=== PATIENT | male | born 1930 | race Caucasian/White ===

== ENCOUNTER 2019-01-15 10:40 | Inpatient (IN) ==
--- NOTE | 2019-01-15 10:47 | History & Physical Report ---
Date of Encounter: 01/15/19 Time of Encounter: 10:47 24 Hour HP Update - Instructions Instructions: If the History and Physical is less than 30 days old and was completed prior to A.M. admission and or procedure and has NOT been updated on calendar day of procedure please complete this update prior to performing procedure. - Update Patient reports changes in Medical Condition: No Changes in examination, assessment, or condition: No Changes in Medication: No Preop tests/diagnostics Reviewed: Yes Surgery Remains Indicated: Yes Consent for Planned Operative Procedure(s) Verified: Yes - Pre-Operative Checklist Preoperative Checklist Indicated: No Prophylactic Antibiotic Ordered: Yes Is VTE Prophylaxis Indicated?: Yes
--- NOTE | 2019-01-15 10:51 | Anesthesia Evaluation PreOp ---
Date of Encounter: 01/15/19 Time of Encounter: 10:48 - Past History Planned Operation: Right Robotic Total Hip Arthroplasty Cardiac History: HTN Pulmonary History: SLICK Dx RN RESEARCH History: Denies Any Significant HX Other Medical History: Renal (CRD Stage 3), Other (rectosigmoid cancer, Bladder cancer) Anesthesia History: No Prior Anesthetic Complications, Past Anesthesia ( cancer surgery, cholecystectomy, colectomy, Cervical Spine Fusion. Lumbar spine fusion. Hemorrhoidectomy) Alcohol Use: none Drug use: none Medications and Allergies Atenolol [Tenormin] 25 mg PO QAM 01/15/19 [History] Furosemide [Lasix] 40 mg PO DAILY 01/15/19 [History] Niacin 500 mg PO DAILY 01/15/19 [History] OXcarbazepine [Oxcarbazepine] 300 mg PO BID 01/15/19 [History] Potassium Chloride [Klor-Con 10] 10 meq PO QAM 01/15/19 [History] Rosuvastatin Calcium [Crestor] 10 mg PO HS 01/15/19 [History] Terazosin [Hytrin] 5 mg PO HS 01/15/19 [History] Triamcinolone Acetonide [Triderm] 1 appl TP DAILY PRN 01/15/19 [History] Allergy/AdvReac Type Severity Reaction Status Date / Time No Known Allergies Allergy Verified 01/15/19 11:08 - Meds/Allergy Pre-op Review Medications Reviewed: Yes Allergies Reviewed: Yes Beta Blockers on Current Med List: Yes If Beta Blockers taken, Date/Time (Last Dose taken): 08:30 Today Anesthesia Results - Labs Laboratory Tests 12/23/18 12/23/18 12/23/18 11:49 11:49 11:49 WBC 5.5 Hgb 11.6 L Hct 33.9 L INR 1.1 Sodium 142 Potassium 3.4 L Chloride 106 Carbon Dioxide 30 H BUN 17 Creatinine 1.19 - Imaging EKG: report reviewed (SINUS BRADYCARDIA INTRAVENTRICULAR CONDUCTION DELAY MODERATE VOLTAGE CRITERIA FOR LVH, CONSIDER NORMAL VARIANT Electronically Signed On 11-30-2018 18:14:43 EDT by Brody Navarrete) Additional studies: Echocardiogram Name: Serge Meghan Date of Study: 10/23/2018 EV/EV echocardiogram Impressions: LVEF 60%. Mild left ventricular diastolic dysfunction. Normal right ventricular structure and function. Mild tricuspid regurgitation. No pulmonary hypertension. 10/23/18 Stress Small perfusion defect possibly representing Ischemia EF-53% No perfusion evidence of infarct Name: Serge Christianson Date of Study: 11/29/2018 Date: 1930 Ht: 165.1 cm /65.0 in Medical Record#: [id number] Age: 87 Wt: 77.3 kg / 170.42 lb Account/Order#: [id number] Gender: Male BSA: 1.85 Order #: [id number] Fluoro Dose: 73 mGy 17 mGycm2 BMI: 28.36 Procedure Physician: Jenaro Patton MD, [facility] Referring MD: Nicole Telles CNP Referring MD: Procedures Performed: Transradial LEFT HEART CATH Indications: Abnormal Test - Stress Other- Abnormal Test- Stress Impressions: Mild atherosclerotic coronary artery disease. There is mild segmental LV Dysfunction EF 45% Recommendations: Optimal medical therapy of patient's disease. Aggressive risk factor modification. LV Ventriculography Ejection Method: LV Gram Ejection Fraction: 45% Coronary Dominance: right Lesion Findings/Interventions * Left Main Coronary Artery The LMCA is angiographically free of disease. * Left Anterior Descending There is a 30% stenosis in the Mid LAD. * Circumflex There is a 20% stenosis in the Mid Circumflex. * Right Coronary Artery There is a 15% stenosis in the Proximal RCA. Anesthesia Exam O2 Sat Height 1.65 m Weight 71.668 kg O2 Sat by Pulse Oximetry 96 Vital Signs Temp Pulse Resp BP Pulse Ox 98.4 F 50 18 142/74 96 01/15/19 11:01 01/15/19 11:01 01/15/19 11:01 01/15/19 11:01 01/15/19 11:01 - HEENT Pupil (Motor): Pupils equal, EOMI Mallampati: III Teeth: Missing, Poor dentition Oral Opening: Greater than 3 - RN RESEARCH LOC: Oriented RN RESEARCH Motor: Normal RUE, Normal LUE, Normal RLE, Normal LLE, Normal Face RN RESEARCH Sensory: Normal: RUE, LUE, RLE, LLE, Face - Cardiac Rhythm: Regular Murmur: None JVD: No Carotid Bruit: No - Pulmonary Breath Sounds: bilateral Clear Respiratory Effort: Symmetrical Anesthesia Assess/Plan ASA Score: 3 Level of consciousness: Cooperative Anesthetic Plan: General Reason for No Neuroaxial/Regional Block: Patient refusal, Medication contraindications (multiple lumbar sx) Autologous Blood: Yes Monitoring Plan: Standard Monitors Recovery Plan: PACU
[2019-01-15] MEDS ORDERED: Celecoxib 200 MG CAPSULE PO ONE (11:18)
[2019-01-15] MEDS ORDERED: Gabapentin 300 MG CAPSULE PO ONE (11:18)
[2019-01-15] MEDS ORDERED: *HR* OxyCODONE ER (12 HR) 10 MG TABLET PO ONE (11:20)
[2019-01-15] MEDS ORDERED: Propofol 500 MG/50 ML INFUS..BTL ONE (11:21)
[2019-01-15] MEDS ORDERED: Acetaminophen IV 1,000 MG/100 ML INFUS..BTL IVPB ONE (11:21)
--- NOTE | 2019-01-15 12:09 | Physician Discharge Referral ---
ExtendedCare Referral Info Transfer To: [facility] Provider in Charge: Dr. Valdez - Diagnosis (1) Status post total replacement of right hip Priority: Primary Status: Acute (2) Osteoarthritis of right hip Priority: Primary Status: Chronic (3) Hypertension Priority: Secondary Status: Chronic (4) CAD (coronary artery disease) Priority: Secondary Status: Chronic (5) SLICK (obstructive sleep apnea) Priority: Secondary Status: Chronic (6) Bifascicular block Priority: Secondary Status: Chronic (7) Sinus bradycardia Priority: Secondary Status: Chronic (8) History of bladder cancer Priority: Secondary Status: Chronic (9) History of colon cancer Priority: Secondary Status: Chronic (10) Acute blood loss anemia Status: Acute (11) CKD (chronic kidney disease) stage 3, GFR 30-59 ml/min Priority: Secondary Status: Chronic Expected Duration of Placement: <30 days Prognosis: Good Aware of Diagnosis: Patient Aware of Prognosis: Patient - Transfer Medications Home Medications: Aspirin Enteric Coated [Aspirin EC] 325 mg PO BID 10 Days #20 tablet. 01/15/19 [Rx] Atenolol [Tenormin] 25 mg PO QAM 01/15/19 [History] Docusate Sodium [Colace] 100 mg PO BID 5 Days #10 capsule 01/15/19 [Rx] Furosemide [Lasix] 40 mg PO DAILY 01/15/19 [History] Niacin 500 mg PO DAILY 01/15/19 [History] OXcarbazepine [Oxcarbazepine] 300 mg PO BID 01/15/19 [History] OxyCODONE Immed Rel [Roxicodone 5 MG] 5 mg PO Q6HR PRN 5 Days #20 tablet 01/15/19 [Rx] Potassium Chloride [Klor-Con 10] 10 meq PO QAM 01/15/19 [History] Rosuvastatin Calcium [Crestor] 10 mg PO HS 01/15/19 [History] Terazosin [Hytrin] 5 mg PO HS 01/15/19 [History] Triamcinolone Acetonide [Triderm] 1 appl TP DAILY PRN 01/15/19 [History] Allergies/Adverse Reactions: Allergy/AdvReac Type Severity Reaction Status Date / Time No Known Allergies Allergy Verified 01/15/19 11:08 - Respiratory Orders None Smoking Cessation: Smoking cessation has been advised. For more information, call the [place] Tobacco Quit Line at 9-955-AOPT-NOW. - Ancillary Orders May use pressure relief devices daily prn, May go on NASH w/family/respon constitution party w/meds at nurse discretion PRN, May consult with Dentist, Hr Business Partner, Security Systems Specialist PRN - Advance Directives Code Status: Full Code - Mobility Orders Chair, Ambulate - Rehabiliation Orders Rehab Potential: Good Rehab Orders: ROM Exercises, Evaluation for Physical Therapy, Evaluation for Occupational Therapy Other: Opsite dressing, leave intact until first post-operative visit. If dressing becomes >50% saturated, contact office, remove dressing and place appropriate dressing in its place. Do not allow for dressing to get wet. Zipline/[place] in place, plan to remove at post-operative day #14-16. Total Joint Precautions x 6 weeks Apply cold therapy wrap 3-6x/day for 20 minutes at a time. Encourage ambulation throughout the day Use Incentive spirometer 10x/hour. Elevate affected extremity above heart as tolerated. Brace: Wear hip abductor brace at night x 6 weeks. - Treatments Skin tear care topically daily PRN per policy, Fleet enema rectally every other day PRN cleansing purposes - Diet Orders Regular CERTIFICATION: I certify that the transfer of the above named patient to an Extended Care Facility is necessary for the continuing treatment of the diagnosis listed. The above information is true and accurate reflection of patient's current condition. Confidential - Redisclosure prohibited without a patient's written consent.
[2019-01-15] MEDS ORDERED: CeFAZolin Syr 2,000MG/20 ML 2,000 MG/20 ML SYRINGE IVPB ONE (12:12)
[2019-01-15] MEDS: Ringers Solution, Lactated 1,000 ML IVC SCH ×3 (12:22→16:26)
[2019-01-15] MEDS ORDERED: Ethanol\\Acetic Acid\\Na Ace\\Ben 1,000 ML IRRIG.SOLN IR ONE (12:34)
--- NOTE | 2019-01-15 12:49 | Discharge Summary ---
<Savanah Capellan E - Last Filed: 01/15/19 12:46> Date of Encounter: 01/15/19 - Hospital Course Hospital course: Mr. Christianson is a 88 year old male - Time Spent with Patient Total time spent providing and/or coordinating discharge services: - Discharge Medications Prescriptions: New Aspirin Enteric Coated [Aspirin EC] 325 mg PO BID 10 Days #20 tablet. Docusate Sodium [Colace] 100 mg PO BID 5 Days #10 capsule OxyCODONE Immed Rel [Roxicodone 5 MG] 5 mg PO Q6HR PRN 5 Days #20 tablet PRN Reason: Severe Pain Continued Rosuvastatin Calcium [Crestor] 10 mg PO HS OXcarbazepine [Oxcarbazepine] 300 mg PO BID Potassium Chloride [Klor-Con 10] 10 meq PO QAM Niacin 500 mg PO DAILY Furosemide [Lasix] 40 mg PO DAILY Triamcinolone Acetonide [Triderm] 1 appl TP DAILY PRN PRN Reason: Itching Discontinued Terazosin [Hytrin] 5 mg PO HS Atenolol [Tenormin] 25 mg PO QAM Home Medications: Aspirin Enteric Coated [Aspirin EC] 325 mg PO BID 10 Days #20 tablet. 01/15/19 [Rx] Docusate Sodium [Colace] 100 mg PO BID 5 Days #10 capsule 01/15/19 [Rx] Furosemide [Lasix] 40 mg PO DAILY 01/15/19 [History] Niacin 500 mg PO DAILY 01/15/19 [History] OXcarbazepine [Oxcarbazepine] 300 mg PO BID 01/15/19 [History] OxyCODONE Immed Rel [Roxicodone 5 MG] 5 mg PO Q6HR PRN 5 Days #20 tablet 01/15/19 [Rx] Potassium Chloride [Klor-Con 10] 10 meq PO QAM 01/15/19 [History] Rosuvastatin Calcium [Crestor] 10 mg PO HS 01/15/19 [History] Triamcinolone Acetonide [Triderm] 1 appl TP DAILY PRN 01/15/19 [History] Allergies/Adverse Reactions: Allergy/AdvReac Type Severity Reaction Status Date / Time No Known Allergies Allergy Verified 01/15/19 11:08 Primary care physician: Kindra Rudd - Patient Status Disposition: Transfer SNF Condition: Good - Discharge Instructions Follow Up With: Kindra Rudd CNP [Primary Care Provider] - <Savanah Babin - Last Filed: 01/19/19 17:36> - NOTES TO OUTPATIENT PROVIDER Notes to Outpatient Provider: Will require close PCP/cardiology follow up for blood pressure management. Date of Encounter: 01/19/19 Time of Encounter: 12:10 - Discharge Diagnosis (1) Status post total replacement of right hip Priority: Primary Status: Acute (2) Osteoarthritis of right hip Priority: Primary Status: Chronic Qualifiers: Osteoarthritis type: unspecified Qualified Code(s): M16.11 - Unilateral primary osteoarthritis, right hip (3) Hypertension Priority: Secondary Status: Chronic Qualifiers: Hypertension type: unspecified Qualified Code(s): I10 - Essential (primary) hypertension (4) CAD (coronary artery disease) Priority: Secondary Status: Chronic Qualifiers: Coronary Disease-Associated Artery/Lesion type: unspecified vessel or lesion type [place] vs. transplanted heart: unspecified whether [place] or transplanted heart Associated angina: angina presence unspecified Qualified Code(s): I25.10 - Atherosclerotic heart disease of [place] coronary artery without angina pectoris (5) SLICK (obstructive sleep apnea) Priority: Secondary Status: Chronic (6) Bifascicular block Priority: Secondary Status: Chronic (7) Sinus bradycardia Priority: Secondary Status: Chronic (8) History of bladder cancer Priority: Secondary Status: Chronic (9) History of colon cancer Priority: Secondary Status: Chronic (10) Acute blood loss anemia Priority: Secondary Status: Acute (11) CKD (chronic kidney disease) stage 3, GFR 30-59 ml/min Priority: Secondary Status: Chronic - Hospital Course Hospital course: Mr. Christianson is a 88 year old male status post right THR 01/15/19 with medical history of HTN, CKD3, CAD, bifascicular block, SLICK, and h/o bladder and colon cancer. He developed postoperative anemia causing hypotension and DALIA on CKD. Hospitalist was consulted for further medical management of these. The patient received 3 units RBC transfusion and had improvement in the kidney function, BP and anemia. Hospitalist also made changes to patient's home BP medications as below and will require close follow up with PCP/cardiology for further management outpatient basis. Patient also participated in therapy and progressing well. He is now stable for discharge and will follow up in [facility] office next week for reevaluation. Per hospitalist: - resume home lasix 40 daily at d/c and rec close outpatient Cardio or PCP follow up - hold home atenolol, hytrin, and temazepam at d/c - limit opioids at d/c PCR - POD#4 s/p right THR robotic 01/15/19 Patient seen at bedside, without complaints. A&O x 3 Afebrile, vital signs stable, BP improved after fluids, blood transfusion and medication changes. on tele. he has been weaned off O2 now and doing well at 97%. Dressings c/d/i. no calf tenderness to palpation, good dorsiflexion of foot, sensation intact distally. Labs reviewed. H/H - 8.6/25.8 stable, asymptomatic - 2 units RBC transfusion 01/17, Dr. Valdez ordered another unit today Kidney function much improved after the transfusions. Appreciate hospitalists recommendations for management of hypotension and DALIA on CKD. Pain control: adequate Participating in PT. All questions and concerns addressed. Educated on use of incentive spirometer. Encouraged ambulation and proper hydration. Patient educated on post-operative restrictions and post-operative care. Assessment and plan: Continue with postoperative care Discharge plan: ECF today - Time Spent with Patient Total time spent providing and/or coordinating discharge services: Date of admission: 01/15/19 16:30 Primary care physician: Kindra Rudd Consults: 01/15/19 16:29 Consult to Nurse Navigator [CONS] Routine Comment: ortho navigator Consult to Nutrition [CONS] Routine Comment: Consulting Provider: NUTRITION Reason for Dietary Consult: Other Other:: Proper nutrition to facilitate wound healing Consult to Occupational Therapy [CONS] Routine Comment: Evaluate, develop and implement POC Reason for Consult: total hip replacement Does patient have active BEDREST order?: No Is patient medically & hemodynamically stable?: Yes Consult to Physical Therapy [CONS] Routine Comment: Evaluate, develop and implement POC Reason for Consult: total hip replacement Does patient have active BEDREST order?: No Is patient medically & hemodynamically stable?: Yes Consult to Religion Instructor [CONS] Routine Reason for SW Consult: post op joint replacement ECF for therapy RT Post Op Consult [CONS] Routine 01/17/19 12:59 Consult to Hospitalist [CONS] Routine Consulting Provider: Hospitalist Janis Reason for Consult: anemia, kidney dysfunction Time Notified: 13:03 Call Completed: Yes Discharging clinician: Boby Valdez Anticipated date of discharge: 01/19/19 Labs on day of discharge: Labs from last 24 hours 01/18/19 01/18/19 01/18/19 08:08 08:08 07:33 WBC 8.2 RBC 2.44 L Hgb 7.8 L 7.8 L Hct 23.4 L 23.9 L MCV 98.0 MCH 32.0 MCHC 32.6 RDW 16.0 H Plt Count 105 L MPV 10.0 Immature Gran % 1.1 Seg Neutrophils % 71.9 Lymphocytes % 16.8 Monocytes % 8.7 Eosinophils % 1.3 Basophils % 0.2 Neutrophils # 5.9 Lymphocytes # 1.4 Monocytes # 0.7 Eosinophils # 0.1 Basophils # 0.0 Platelet Estimate Slight Decrease L Sodium Potassium Chloride Carbon Dioxide BUN Creatinine Est GFR ( Amer) Est GFR (Non-Af Amer) BUN/Creatinine Ratio Glucose Calculated Osmolality Calcium Specimen Rejected MCV Delta Blood Type Antibody Screen Crossmatch 01/18/19 01/17/19 06:18 12:42 WBC RBC Hgb Hct MCV MCH MCHC RDW Plt Count MPV Immature Gran % Seg Neutrophils % Lymphocytes % Monocytes % Eosinophils % Basophils % Neutrophils # Lymphocytes # Monocytes # Eosinophils # Basophils # Platelet Estimate Sodium 141 Potassium 3.8 Chloride 106 Carbon Dioxide 30 H BUN 23 Creatinine 1.11 Est GFR ( Amer) > 60 Est GFR (Non-Af Amer) > 60 BUN/Creatinine Ratio 21 Glucose 138 H Calculated Osmolality 298 Calcium 8.2 L Specimen Rejected Blood Type B POSITIVE Antibody Screen NEGATIVE Crossmatch See Detail Short CBC 01/19/19 Range/Units 07:00 WBC 8.5 (4.3-11.1) K/mcL Hgb 8.6 L (12.9-16.9) g/dL Hct 25.8 L (37.5-50.1) % Plt Count 131 L (140-400) K/mcL BMP 01/19/19 Range/Units 07:00 Sodium 140 (136-145) mEq/L Potassium 3.5 (3.5-5.1) mEq/L Chloride 105 (98-107) mEq/L Carbon Dioxide 32 H (23-29) mEq/L BUN 23 (8-23) mg/dL Creatinine 0.95 (0.70-1.30) mg/dL Glucose 147 H (70-105) mg/dL Calcium 8.2 L (8.6-10.3) mg/dL - Impressions ITS Impressions Hip X-Ray 01/15/19 15:49 IMPRESSION: No postoperative complications are seen status post right total hip arthroplasty. D/ / Julian Pinzon MD / Julian Pinzon MD Interpreting Provider: Julian Pinzon MD - Patient Status Functional capacity at discharge: uses cane/walker Overall status at discharge: patient is progressing back to baseline - Diet and Activity Activity: ambulate only with your walker, as per physical therapy Diet: advance to your usual diet
[2019-01-15] MEDS ORDERED: Lidocaine -MPF 2% 2 ML VIAL ONE (13:29)
[2019-01-15] MEDS ORDERED: EPHEDrine 50 MG/ML VIAL ONE (13:39)
[2019-01-15] MEDS ORDERED: Ondansetron 4 MG/2 ML VIAL ONE (13:59)
[2019-01-15] MEDS ORDERED: Dexamethasone 4 MG/ML VIAL ONE (13:59)
--- NOTE | 2019-01-15 14:29 | Orthopedic Operative Note ---
Date of procedure: 01/15/19 Pre-op diagnosis: Right hip arthritis Post-op diagnosis: same Procedure: Procedure: Right Total Hip Replacment robotic-assisted Estimated blood loss: 200 cc Hardware: Metal and polyethylene replacement. [place] DM Cup: 58 cup Femoral size 6 anteverted Anato stem Head: 12 head with Aidee Procedural Notes: Grade 4 arthritic changes femoral head acetabular socket, procedure performed with robotic assistance. Operative leg 3 mm shorter than nonoperative as measured by preoperative CT scan. Operative procedure: The patient was brought to the operating room and placed on the operating room table. After anesthesia was administered the patient was placed in the lateral decubitus position with the operative leg up. All pressure points were padded appropriately and the head was stabilized in the neutral position. The operative extremity was prepped and draped in the sterile surgical fashion patient received IV antibiotic prior to skin incision. 3 Steinmann pins were placed in the iliac crest 3 cm proximal to the anterior superior iliac spine this was for the robotic-assisted sensor. This was done through a small 2 cm incision. A standard posterior approach is made to the operative hip, the i ncision was made through the skin and subcutaneous tissue hemostasis was obtained with Bovie cautery. Using careful sharp dissection the fascia was identified and incised exposing the external rotators. The greater trochanter was marked, and length was measured at this time utilizing robotic assistance. The external rotators were released off the greater trochanter and tagged with #2 FiberWire suture. The capsule was T'd open and the hip was brought into internal rotation. Patient noted to have grade 4 arthritic changes femoral head. The femoral neck cut was made at the appropriate level roughly 22 mm proximal to the lesser trochanter aced on preoperative templating. An anterior capsulotomy was performed for the anterior retractor. Soft tissues removed from the acetabulum. Patient noted to have grade 4 arthritic changes acetabulum. The acetabulum reference point was confirmed. The acetabulum was then mapped with robotic assistance. Based on the preoperative plan the acetabulum was reamed in one step with a 58 reamer. The 58 acetabulum was impacted with robotic assistance and 40 degrees of abduction and 20 degrees of anteversion. The hip was brought back in to internal rotation and prepared with the box loader followed by the canal finder followed by the reaming process to a size 13 broaching process in 20 degrees anteversion. It was broached up to the appropriate size 6 Trial reduction revealed leg lengths close to normal. The femoral implant was impacted in place in 20 degrees of anteversion. Trial reduction found the hip to be stable with 12 head and Aidee. The trials were removed and the real implants were impacted in place. The hip was reduced, patient had robotic confirmed leg length of 4 mm longer than the contralateral side. The hip had excellent stability with forward flexion to 90 degrees adduction of 30 degrees and internal rotation of 60 degrees. The hip had no shuck. The hip sat with an antibacterial solution. It was irrigated out with 2 L of pulse irrigation. The Steinmann pins were removed. The hip was closed by the PA. The deep tissue was irrigated and closed deep with #1 PDS suture superficially with 0 PDS suture and skin was closed with Dermabond and zip tie. The patient was placed in a sterile dressing and abduction pillow. The patient was transferred to the recovery room in stable condition. Anesthesia: GETA Surgeon: Boby Valdez Was there an surgical supply assistant present: No Estimated blood loss (cc): 200 Condition: stable Disposition: PACU
[2019-01-15 15:42] LABS: Hematocrit 29.7 % (37.5-50.1); Hemoglobin 9.7 g/dL (12.9-16.9)
[2019-01-15] MEDS ORDERED: *HR* HYDROmorphone (PF) 1 MG/ML SYRINGE IVP PRN (15:43)
[2019-01-15] MEDS ORDERED: *HR* OxyCODONE Immed Rel 5 MG TABLET PO PRN ×2 (15:43→16:29)
[2019-01-15] MEDS ORDERED: *HR* Promethazine 25 MG/ML VIAL IVP PRN ×2 (15:43→16:29)
[2019-01-15] MEDS ORDERED: Ondansetron 4 MG/2 ML VIAL IVP ONE (15:43)
--- NOTE | 2019-01-15 16:03 | Anesthesia Evaluation Post Op ---
Date of Encounter: 01/15/19 Time of Encounter: 16:02 - Vital Signs Vital Signs: Vital Signs/O2 Sat, Most Current Temp Pulse Resp BP Pulse Ox 97.9 F 42 16 116/50 98 01/15/19 15:39 01/15/19 15:59 01/15/19 15:59 01/15/19 15:59 01/15/19 15:59 - Lungs Lungs: Clear Ascult./Percussion - Airway Airway: Non-obstructed - Cardiovascular Regular Rate - Mental Status Mental Status: Alert & Oriented, Answers Appropriately - Pain Pain Scale: 0 Pain Scale used: Numeric (1 - 10) - Nausea Vomiting Nausea Vomiting: Not Present - Hydration Hydration: Tolerates oral liquids, Has not voided - Discharge PostOp Status: Transfer Patient to floor
[2019-01-15] MEDS ORDERED: Ondansetron 4 MG/2 ML VIAL IVP PRN (16:29)
[2019-01-15] MEDS ORDERED: Temazepam 15 MG CAPSULE PO PRN (16:29)
[2019-01-15] MEDS ORDERED: MOM Conc 10 ML UD.LIQ PO PRN (16:29)
[2019-01-15] MEDS ORDERED: Sennosides 8.6 MG TABLET PO PRN (16:29)
[2019-01-15] MEDS ORDERED: Naloxone 0.4 MG/ML INJ IVP PRN (16:29)
[2019-01-15] MEDS ORDERED: traMADol 50 MG TABLET PO PRN (16:29)
[2019-01-15] MEDS ORDERED: HYDROcodone BIT/Homatropine 5 MG TABLET PO PRN (16:29)
[2019-01-15] MEDS: Ascorbic Acid 500 MG TABLET PO SCH (17:14)
[2019-01-15] MEDS: *HR* Enoxaparin 30 MG/0.3 ML SYRINGE SQ SCH (17:17)
[2019-01-15] MEDS ORDERED: *HR* Enoxaparin 30 MG/0.3 ML SYRINGE SQ SCH (18:00)
[2019-01-15] MEDS: OXcarbazepine 150 MG TABLET PO SCH (20:25)
[2019-01-16] MEDS: Ringers Solution, Lactated 1,000 ML IVC SCH (04:16)
[2019-01-16 05:43] LABS: Hematocrit 26.4 % (37.5-50.1); Hemoglobin 8.3 g/dL (12.9-16.9); Immature Granulocytes % 0.5 % (0-4); Lymphocytes # 0.5 K/mcL (0.6-4.6); Lymphocytes % 5.2 %; Mean Corpuscular HGB Conc 31.4 g/dL (31.6-35.5); Mean Corpuscular Hemoglobin 32.2 pg (28.0-33.3); Mean Corpuscular Volume 102.3 fL (83.0-100.0); Mean Platelet Volume 10.1 fL (9.4-12.4); Monocytes # 0.7 K/mcL (0.0-1.3); Monocytes % 7.9 %; Neutrophils # 7.6 K/mcL (1.6-8.9); Platelet Count 132 K/mcL (140-400); Red Blood Count 2.58 M/mcL (4.19-5.50); Segmented Neutrophils % 86.4 %; White Blood Count 8.8 K/mcL (4.3-11.1)
[2019-01-16] MEDS: *HR* Enoxaparin 30 MG/0.3 ML SYRINGE SQ SCH ×2 (06:04→16:53)
[2019-01-16 06:07] LABS: BUN/Creatinine Ratio 16 (6-26); Blood Urea Nitrogen 21 mg/dL (8-23); Carbon Dioxide 27 mEq/L (23-29); Chloride 107 mEq/L (98-107); Glucose 177 mg/dL (70-105); Osmolality,Calculated 301 (280-300); Sodium 142 mEq/L (136-145); eGFR For African Americans > 60 (> 60); eGFR For Non-African Americans 52 (> 60)
--- NOTE | 2019-01-16 06:20 | Orthopedics Progress Note ---
Date of Encounter: 01/16/19 Time of Encounter: 06:20 - Assessment and Plan (1) Acute blood loss anemia Current Visit: Yes Status: Acute Subjective Interval history: Patient was seen this morning doing well without complaints. Afebrile vital signs stable. Operative extremity: Neurovascularly intact Dressing clean dry and intact Calves nontender Assessment and plan: Continue with postoperative care Hemoglobin 8.3 Objective Vital signs: Vital Signs Temp Pulse Resp BP Pulse Ox 01/16/19 05:54 56 91/53 01/16/19 04:31 67 121/67 01/16/19 03:22 97.6 F 50 15 93/47 92 01/15/19 23:07 105/60 01/15/19 22:42 97.5 F L 49 98/53 01/15/19 22:37 96.3 F L 52 16 93/43 98 01/15/19 20:36 99 01/15/19 20:15 96.9 F L 44 16 94/56 99 01/15/19 18:30 41 18 108/64 100 01/15/19 17:30 43 18 105/61 95 01/15/19 17:00 46 18 106/58 96 01/15/19 16:48 95 01/15/19 16:30 98 F 43 18 108/64 95 01/15/19 16:19 97.0 F L 42 14 126/54 98 01/15/19 16:09 97.1 F L 51 16 111/71 100 01/15/19 15:59 42 16 116/50 98 01/15/19 15:49 53 12 100/60 94 01/15/19 15:39 97.9 F 46 12 125/53 95 01/15/19 15:29 49 16 139/61 97 01/15/19 15:19 50 12 142/65 99 01/15/19 15:09 97.2 F L 49 12 117/52 96 01/15/19 11:01 98.4 F 50 18 142/74 96 Intake and Output 01/15/19 01/15/19 01/16/19 15:59 23:59 07:59 Intake Total 1000 / 1100 100 / 1100 1000 / 1000 Output Total 200 / 200 450 / 450 Balance 800 / 900 100 / 900 550 / 550 Intake: IV Fluids 1000 / 1100 100 / 1100 1000 / 1000 Lactated Ringers 1,000 ML @ 75 1000 / 1000 1000 / 1000 mls/hr IVC .[id number] [facility] Rx#: [id number] Ancef 2,000 MG In 0.9 % Sodium 100 / 100 Chloride 100 ML @ 200 mls/hr IVPB Q8HR [facility] Rx#:[id number] Output: Estimated Blood Loss 200 / 200 Straight Cath 450 / 450 Other: Weight 71.668 kg 71.5 kg Blood Glucose* 118 Patient Weight 01/16/19 23:59 Weight 71.5 kg - Labs CBC & BMP: 01/16/19 05:18 01/16/19 05:18 Labs: Abnormal lab results RBC 2.58 M/mcL (4.19-5.50) L 01/16/19 05:18 Hgb 8.3 g/dL (12.9-16.9) L 01/16/19 05:18 Hct 26.4 % (37.5-50.1) L 01/16/19 05:18 MCV 102.3 fL (83.0-100.0) H 01/16/19 05:18 MCHC 31.4 g/dL (31.6-35.5) L 01/16/19 05:18 Plt Count 132 K/mcL (140-400) L 01/16/19 05:18 Lymphocytes # 0.5 K/mcL (0.6-4.6) L 01/16/19 05:18 Creatinine 1.31 mg/dL (0.70-1.30) H 01/16/19 05:18 Est GFR (Non-Af Amer) 52 (> 60) L 01/16/19 05:18 Glucose 177 mg/dL (70-105) H 01/16/19 05:18 Calculated Osmolality 301 (280-300) H 01/16/19 05:18 Calcium 8.0 mg/dL (8.6-10.3) L 01/16/19 05:18 - VTE Documentation of Mechanical Device: Venous foot pump, device Consult Discharge Plan - Plan Referrals: Kindra Rudd CNP [Primary Care Provider] -
[2019-01-16] MEDS: Furosemide 40 MG TABLET PO SCH (08:30)
[2019-01-16] MEDS: OXcarbazepine 150 MG TABLET PO SCH ×2 (08:38→19:42)
[2019-01-16] MEDS: Ascorbic Acid 500 MG TABLET PO SCH ×2 (08:40→16:53)
[2019-01-16] MEDS: Niacin (24 HR) 500 MG TAB.ER.24H PO SCH (08:40)
[2019-01-16] MEDS: Multivit/Ca/Min/Fe/FA 1 TAB TABLET PO SCH (08:40)
--- NOTE | 2019-01-16 16:15 | Event Note ---
Date of Encounter: 01/16/19 Time of Encounter: 12:20 PCR - POD#1 s/p right THR robotic 01/15/19 Patient seen at bedside, without complaints. A&O x 3 Afebrile, vital signs stable except for hypotension. Will add fluids slowly due to CKD and cardiac issues. on tele Dressings c/d/i except for small area of bleeding noted to posterior end - will continue to monitor, no calf tenderness to palpation, good dorsiflexion of foot, sensation intact distally. Labs reviewed. H/H - 8.3/26.4 asymptomatic - will continue to monitor Pain control: adequate Participating in PT. All questions and concerns addressed. Educated on use of incentive spirometer. Encouraged ambulation and proper hydration. Patient educated on post-operative restrictions and post-operative care. Assessment and plan: Continue with postoperative care Discharge plan: ECF when medically cleared
[2019-01-17] MEDS: *HR* Enoxaparin 30 MG/0.3 ML SYRINGE SQ SCH (05:35)
[2019-01-17 06:52] LABS: Basophils % 0.1 %; Eosinophils # 0.1 K/mcL (0.0-0.6); Eosinophils % 1.8 %; Hematocrit 19.5 % (37.5-50.1); Immature Granulocytes % 0.6 % (0-4); Lymphocytes # 1.1 K/mcL (0.6-4.6); Mean Corpuscular HGB Conc 32.8 g/dL (31.6-35.5); Mean Corpuscular Volume 100.5 fL (83.0-100.0); Mean Platelet Volume 9.6 fL (9.4-12.4); Monocytes # 0.5 K/mcL (0.0-1.3); Neutrophils # 4.9 K/mcL (1.6-8.9); Red Blood Count 1.94 M/mcL (4.19-5.50); Red Cell Distribution Width 13.3 % (11.5-14.5); Segmented Neutrophils % 73.5 %; White Blood Count 6.7 K/mcL (4.3-11.1)
[2019-01-17 06:53] LABS: Hemoglobin 6.4 g/dL (12.9-16.9); Platelet Count 91 K/mcL (140-400)
[2019-01-17 07:14] LABS: Calcium 7.6 mg/dL (8.6-10.3); Potassium 4.2 mEq/L (3.5-5.1)
[2019-01-17] MEDS: Multivit/Ca/Min/Fe/FA 1 TAB TABLET PO SCH (08:48)
[2019-01-17] MEDS: OXcarbazepine 150 MG TABLET PO SCH ×2 (08:48→20:48)
[2019-01-17] MEDS: Ascorbic Acid 500 MG TABLET PO SCH ×2 (08:49→18:22)
[2019-01-17] MEDS: Niacin (24 HR) 500 MG TAB.ER.24H PO SCH (08:49)
[2019-01-17] MEDS: Furosemide 40 MG TABLET PO SCH (08:50)
--- NOTE | 2019-01-17 13:01 | Event Note ---
Date of Encounter: 01/17/19 Time of Encounter: 12:15 PCR - POD#2 s/p right THR robotic 01/15/19 Patient seen at bedside, without complaints. A&O x 3 Afebrile, vital signs stable, BP did improve some today. on tele. has been on IV fluids Dressings c/d/i except for small area of bleeding noted to posterior end - No increase compared to yesterday - will continue to monitor no calf tenderness to palpation, good dorsiflexion of foot, sensation intact distally. Labs reviewed. H/H - 6.08/18.5 asymptomatic - ordered 2 units RBC transfusion Kidney function has worsened today. Discussed with Dr. Valdez and recommend consultation to hospitalist for further input. I did speak to Dr. Ricketts who is agreeable to seeing this patient in consultation for medical management. Pain control: adequate Participating in PT. All questions and concerns addressed. Educated on use of incentive spirometer. Encouraged ambulation and proper hydration. Patient educated on post-operative restrictions and post-operative care. Assessment and plan: Continue with postoperative care Discharge plan: ECF when medically cleared
[2019-01-17] MEDS ORDERED: 0.9 % Sodium Chloride 250 ML ONE ×2 (13:53→18:03)
--- NOTE | 2019-01-17 16:44 | Internal Med Progress Note ---
Hospitalist Progress Note - Encounter Date of Encounter: 01/17/19 Time of Encounter: 16:26 - Subjective Interval History: Serge Christianson is an 88 M w hx CoCa s/p resection and chemorad '09, HFpEF, HTN, BPH, CKD3a, chronic normocytic anemia, OA s/p R TREVOR 01/15/2019, who currently has post-operative hypotension for which medicine has been consulted. Hypotension: likely multifactorial 2/2 operative blood loss, home meds, and pain meds - holding home atenolol, hytrin, furosemide, temazepam - holding opioids including oxycodone and tramadol - transfuse for anemia as below - continue PO food/fluid intake - fluid bolus prn MAP<65 DALIA on CKD3a: baseline ~1.2, currently 1.5 w uptrending BUN - treat w fluids and transfusion as noted elsewhere, recheck in AM Acute on chronic anemia: likely 2/2 operative blood loss - T&C - transfuse 2u given acute drop, concurrent hypotension, and potential ongoing bleeding given saturated dressing site earlier OA s/p robotic R TREVOR 01/15: Ortho following HTN: hold home atenolol 25 daily BPH: hold home hytrin 5 qhs HFpEF: last EF 60% in 10/2018, [facility] did suggest LVEF 45% but TTE is more reliable. At any rate, holding home lasix 40 daily PPx: lovenox Tele: no Activity: per primary FEN: cardiac, no MIVF Lines: PIV Consults: Ortho and Hospitalist Code: Full Dispo: patient requires inpatient eval and management at this time, anticipate 1-2 days, will need SNF - Exam Vitals: Temp Pulse Resp BP Pulse Ox 98.4 F 73 16 115/58 95 01/17/19 14:42 01/17/19 14:42 01/17/19 14:42 01/17/19 14:42 01/17/19 14:42 - Time Spent with Patient Total time spent is greater than 50% in coordination of care (as documented) at patient's floor/unit and/or counseling patient: Internal Medicine: Result - Labs CBC & Chem 7: 01/17/19 06:38 01/17/19 06:38 Labs: Short CBC 01/17/19 Range/Units 06:38 WBC 6.7 (4.3-11.1) K/mcL Hgb 6.4 L D (12.9-16.9) g/dL Hct 19.5 L (37.5-50.1) % Plt Count 91 L (140-400) K/mcL Neutrophils # 4.9 (1.6-8.9) K/mcL [facility] [place] 01/17/19 06:38 Sodium 138 Potassium 4.2 Chloride 104 Carbon Dioxide 29 BUN 28 H Creatinine 1.47 H Glucose 136 H Calcium 7.6 L - VTE Documentation of Mechanical Device: Venous foot pump, device Consult Discharge Plan - Plan Referrals: Kindra Rudd, JUDY [Primary Care Provider] -
--- NOTE | 2019-01-17 16:45 | Internal Medicine Consult Note ---
Date of Encounter: 01/17/19 Time of Encounter: 16:44 - Summary of Assessment and Plan Summary of Assessment and Plan: Serge Christianson is an 88 M w hx CoCa s/p resection and chemorad ', HFpEF, HTN, BPH, CKD3a, chronic normocytic anemia, OA s/p R TREVOR 01/15/2019, who currently has post-operative hypotension for which medicine has been consulted. Hypotension: likely multifactorial 2/2 operative blood loss, home meds, and pain meds - holding home atenolol, hytrin, furosemide, temazepam - holding opioids including oxycodone and tramadol - transfuse for anemia as below - continue PO food/fluid intake - fluid bolus prn MAP<65 DALIA on CKD3a: baseline ~1.2, currently 1.5 w uptrending BUN, likely 2/2 hypotension and anemia - treat w fluids and transfusion as noted elsewhere, recheck in AM Acute on chronic anemia: likely 2/2 operative blood loss - T&C - transfuse 2u given acute drop, concurrent hypotension, and potential ongoing bleeding given saturated dressing site earlier OA s/p robotic R TREVOR 01/15: Ortho following HTN: hold home atenolol 25 daily BPH: hold home hytrin 5 qhs HFpEF: last EF 60% in 10/2018, [facility] did suggest LVEF 45% but TTE is more reliable. At any rate, holding home lasix 40 daily PPx: lovenox Tele: no Activity: per primary FEN: cardiac, no MIVF Lines: PIV Consults: Ortho and Hospitalist Code: Full Dispo: patient requires inpatient eval and management at this time, anticipate 2 days, will need SNF Internal Medicine - CN: HPI - Data of Consult Patient: new to practice Requesting Physician: Boby Valdez MD - Consult Narrative Reason for consult: Hypotension History of present illness: Serge Christianson is an 88 M w hx CoCa s/p resection and chemorad ', HFpEF, HTN, BPH, CKD3a, chronic normocytic anemia, OA s/p R TREVOR 01/15/2019, who currently has post-operative hypotension for which medicine has been consulted. Daughter Soo is present at bedside. First noted yesterday for which gentle fluids were initiated with improvement in his SBP. However, this AM he began again to have hypotension. Today, patient currently denies any symptoms of lightheadedness, dizziness, confusion, somnolen ce, fevers, chills. He does feel cold. He does have stable chronic b/l leg swelling up into his thighs. No bruising of his op site but does have some bleeding noted on dressing. Past medical, surgical, social, and family histories reviewed and updated as below, w addition to FHx that there are no bleeding/clotting disorders. Past Med Surg Social Fam HX - Past Medical History Medical history: arthritis, hypertension, other Additional medical history: BLADDER CANCER. Colon Cancer Psychiatric history: no psych history - Past Surgical History Additional surgical history: R eye sx d/t eye trauma, BACK SURGERY, BLADDER BIOPSY . Colon cancer 2008. Lumbar x2. C-Spine - Social History Smoking Status: Never smoker Smokeless Tobacco Status: No Alcohol use: none Drug use: none Internal Medicine - CN: Meds Aspirin Enteric Coated [Aspirin EC] 325 mg PO BID 10 Days #20 tablet. 01/15/19 [Rx] Atenolol [Tenormin] 25 mg PO QAM 01/15/19 [History] Docusate Sodium [Colace] 100 mg PO BID 5 Days #10 capsule 01/15/19 [Rx] Furosemide [Lasix] 40 mg PO DAILY 01/15/19 [History] Niacin 500 mg PO DAILY 01/15/19 [History] OXcarbazepine [Oxcarbazepine] 300 mg PO BID 01/15/19 [History] OxyCODONE Immed Rel [Roxicodone 5 MG] 5 mg PO Q6HR PRN 5 Days #20 tablet 01/15/19 [Rx] Potassium Chloride [Klor-Con 10] 10 meq PO QAM 01/15/19 [History] Rosuvastatin Calcium [Crestor] 10 mg PO HS 01/15/19 [History] Terazosin [Hytrin] 5 mg PO HS 01/15/19 [History] Triamcinolone Acetonide [Triderm] 1 appl TP DAILY PRN 01/15/19 [History] Allergy/AdvReac Type Severity Reaction Status Date / Time No Known Allergies Allergy Verified 01/15/19 11:08 Hospitalist - CN: Exam - Constitutional Vitals: Temp Pulse Resp BP Pulse Ox 98.4 F 73 16 115/58 95 01/17/19 14:42 01/17/19 14:42 01/17/19 14:42 01/17/19 14:42 01/17/19 14:42 Exam: General: NAD, AAOx3, good eye contact, elderly, relatively well appearing Head: Atraumatic, normocephalic. Face symmetric except R eye is prosthetic Eyes: EOMI, sclerae anicteric ENT: Mucous membranes moist. Normal oral mucosa and dentition. Trachea midline. Thoracic: No visible chest wall deformities. Normal breath sounds b/l, no wheezing or crackles Cardio: Normal S1 and S2, regular rate and rhythm Abdomen: Soft, nontender, nondistended. Extremities: Warm, well perfused. DP pulses 2+ b/l. No clubbing, cyanosis. Legs are firm to touch, with pitting edema up through thighs b/l Skin: Intact. No rashes, bruises, or ulcers. Dressing in place R hip Neuro: Awake, fully oriented. Decent memory, good concentration and attention. Speech fluent. CN II-XII grossly intact. Strength 5/5 in b/l UE and LE Internal Medicine - CN: Reslt - Labs CBC & Chem 7: 01/17/19 06:38 01/17/19 06:38 Labs: Short CBC 01/17/19 Range/Units 06:38 WBC 6.7 (4.3-11.1) K/mcL Hgb 6.4 L D (12.9-16.9) g/dL Hct 19.5 L (37.5-50.1) % Plt Count 91 L (140-400) K/mcL Neutrophils # 4.9 (1.6-8.9) K/mcL BMP 01/17/19 06:38 Sodium 138 Potassium 4.2 Chloride 104 Carbon Dioxide 29 BUN 28 H Creatinine 1.47 H Glucose 136 H Calcium 7.6 L Consult Discharge Plan - Plan Referrals: Kindra Rudd CNP [Primary Care Provider] -
[2019-01-18 07:25] LABS: BUN/Creatinine Ratio 21 (6-26); Blood Urea Nitrogen 23 mg/dL (8-23); Calcium 8.2 mg/dL (8.6-10.3); Carbon Dioxide 30 mEq/L (23-29); Chloride 106 mEq/L (98-107); Glucose 138 mg/dL (70-105); Osmolality,Calculated 298 (280-300); Potassium 3.8 mEq/L (3.5-5.1); Sodium 141 mEq/L (136-145); eGFR For African Americans > 60 (> 60); eGFR For Non-African Americans > 60 (> 60)
--- NOTE | 2019-01-18 07:57 | Orthopedics Progress Note ---
Date of Encounter: 01/18/19 Time of Encounter: 07:55 - Assessment and Plan (1) Acute blood loss anemia Current Visit: Yes Status: Acute Subjective Interval history: Patient was seen this morning doing well without complaints. Afebrile vital signs stable. Operative extremity: Neurovascularly intact Dressing clean dry and intact Calves nontender Assessment and plan: Continue with postoperative care Hemoglobin 6.9 received 2 units of blood yesterday, we will check H&H today possible discharge Objective Vital signs: Vital Signs Temp Pulse Resp BP Pulse Ox 01/18/19 06:43 98.6 F 70 16 119/64 94 01/18/19 04:19 99.0 F 75 16 116/54 96 01/17/19 23:43 99.3 F 80 16 112/56 95 01/17/19 21:27 99.5 F 81 17 112/58 95 01/17/19 19:05 99.8 F H 87 16 122/57 96 01/17/19 18:35 100.1 F H 87 18 110/64 96 01/17/19 18:20 100.5 F H 89 18 110/62 95 01/17/19 17:28 98.0 F 76 18 114/50 93 01/17/19 14:42 98.4 F 73 16 115/58 95 01/17/19 14:27 98.6 F 79 18 95/49 97 01/17/19 11:39 99.0 F 77 16 101/66 Intake and Output 01/17/19 01/17/19 01/18/19 15:59 23:59 07:59 Intake Total 600 / 2500 700 / 2500 100 / 100 Output Total 0 / 0 Balance 600 / 2500 700 / 2500 100 / 100 Intake: Oral 600 / 800 0 / 800 100 / 100 Blood Product 0 / 700 700 / 700 Rbcs Leuko Poor As-1 Unit 0 / 350 350 / 350 [id number] Rbcs Leuko Poor As-1 Unit 350 / 350 [id number] Output: Other 0 / 0 Other: Meal Lunch Percent of Meal Consumed 100% # Urine Diapers 1 1 Weight 82.8 kg Patient Weight 01/18/19 23:59 Weight 82.8 kg - Labs CBC & BMP: 01/17/19 06:38 01/18/19 06:18 Labs: Abnormal lab results RBC 1.94 M/mcL (4.19-5.50) L 01/17/19 06:38 Hgb 6.4 g/dL (12.9-16.9) L D 01/17/19 06:38 Hct 19.5 % (37.5-50.1) L 01/17/19 06:38 MCV 100.5 fL (83.0-100.0) H 01/17/19 06:38 MCHC 31.4 g/dL (31.6-35.5) L 01/16/19 05:18 Plt Count 91 K/mcL (140-400) L 01/17/19 06:38 Lymphocytes # 0.5 K/mcL (0.6-4.6) L 01/16/19 05:18 Carbon Dioxide 30 mEq/L (23-29) H 01/18/19 06:18 BUN 28 mg/dL (8-23) H 01/17/19 06:38 Creatinine 1.47 mg/dL (0.70-1.30) H 01/17/19 06:38 Est GFR ( Amer) 55 (> 60) L 01/17/19 06:38 Est GFR (Non-Af Amer) 45 (> 60) L 01/17/19 06:38 Glucose 138 mg/dL (70-105) H 01/18/19 06:18 Calculated Osmolality 301 (280-300) H 01/16/19 05:18 Calcium 8.2 mg/dL (8.6-10.3) L 01/18/19 06:18 Crossmatch See Detail 01/17/19 12:42 - VTE Documentation of Mechanical Device: Venous foot pump, device Consult Discharge Plan - Plan Referrals: Kindra Rudd CNP [Primary Care Provider] -
[2019-01-18] MEDS: Ascorbic Acid 500 MG TABLET PO SCH ×2 (08:23→17:40)
[2019-01-18] MEDS: Multivit/Ca/Min/Fe/FA 1 TAB TABLET PO SCH (08:24)
[2019-01-18] MEDS: Niacin (24 HR) 500 MG TAB.ER.24H PO SCH (08:24)
[2019-01-18] MEDS: OXcarbazepine 150 MG TABLET PO SCH ×2 (08:24→22:05)
[2019-01-18 08:38] LABS: Basophils % 0.2 %; Eosinophils # 0.1 K/mcL (0.0-0.6); Eosinophils % 1.3 %; Hematocrit 23.4 % (37.5-50.1); Hematocrit 23.9 % (37.5-50.1); Hemoglobin 7.8 g/dL (12.9-16.9); Immature Granulocytes % 1.1 % (0-4); Lymphocytes # 1.4 K/mcL (0.6-4.6); Lymphocytes % 16.8 %; Mean Corpuscular HGB Conc 32.6 g/dL (31.6-35.5); Monocytes # 0.7 K/mcL (0.0-1.3); Monocytes % 8.7 %; Neutrophils # 5.9 K/mcL (1.6-8.9); Platelet Count 105 K/mcL (140-400); Red Blood Count 2.44 M/mcL (4.19-5.50); Segmented Neutrophils % 71.9 %; White Blood Count 8.2 K/mcL (4.3-11.1)
--- NOTE | 2019-01-18 08:56 | Internal Med Progress Note ---
Hospitalist Progress Note - Encounter Date of Encounter: 01/18/19 Time of Encounter: 08:56 - Subjective Interval History: Patient oriented but with poor short term memory. Overall denies dizziness, lightheadedness, palpitations, CP, SOB, cough, N/V/D. Wants assistance walking around again today and looking forward to ambulating. Hip pain improving sligh tly, no bleeding or bruising. - Exam Vitals: Temp Pulse Resp BP Pulse Ox 98.6 F 70 16 119/64 94 01/18/19 06:43 01/18/19 06:43 01/18/19 06:43 01/18/19 06:43 01/18/19 06:43 Exam: General: NAD, AAOx3, good eye contact, elderly, relatively well appearing Thoracic: Normal breath sounds b/l, no wheezing or crackles Cardio: Normal S1 and S2, regular rate and rhythm Abdomen: Soft, nontender, nondistended. Extremities: Warm, well perfused. DP pulses 2+ b/l. Does have mild pitting edema up through thighs b/l Skin: Intact. No rashes, bruises, or ulcers. Dressing in place R hip Neuro: Awake, fully oriented. Deficits in short term memory. Hard of hearing. Speech fluent. CN II-XII grossly intact. Strength 5/5 in b/l UE and LE - Summary of Assessment and Plan Summary of Assessment and Plan: Serge Christianson is an 88 M w hx CoCa s/p resection and chemorad '09, HFpEF, HTN, BPH, CKD3a, chronic normocytic anemia, OA s/p R TREVOR 01/15/2019, who currently has post-operative hypotension for which medicine has been consulted. Hypotension: improved with transfusions, likely 2/2 blood loss - OK to d/c, per primary - resume home lasix 40 daily at d/c and rec close outpatient Cardio or PCP follow up - hold home atenolol, hytrin, and temazepam at d/c - limit opioids at d/c - suggest close follow up 1 week for repeat H&H at Ortho appt - PPx: on lovenox, consider discharge on prophylactic dose of xarelto or eliquis for 30 days CKD3a: baseline ~1.2, improved s/p transfusions Acute on chronic anemia: improved s/p transfusion 2u prbc OA s/p robotic R TREVOR 01/15: Ortho is primary HTN: hold home atenolol 25 daily BPH: hold home hytrin 5 qhs HFpEF: last EF 60% in 10/2018, [facility] did suggest LVEF 45% but TTE is more reliable. Will resume home lasix 40 daily Activity: per primary Code: Full Thank you for this consult. Medicine will sign off. Call with any questions. Internal Medicine: Result - Labs CBC & Chem 7: 01/18/19 08:08 01/18/19 06:18 Labs: Short CBC 01/18/19 Range/Units 08:08 Hgb 7.8 L (12.9-16.9) g/dL Hct 23.4 L (37.5-50.1) % BMP 01/18/19 06:18 Sodium 141 Potassium 3.8 Chloride 106 Carbon Dioxide 30 H BUN 23 Creatinine 1.11 Glucose 138 H Calcium 8.2 L - VTE Documentation of Mechanical Device: Venous foot pump, device Consult Discharge Plan - Plan Referrals: Kindra Rudd, JUDY [Primary Care Provider] -
[2019-01-18] MEDS ORDERED: *HR* Enoxaparin 30 MG/0.3 ML SYRINGE SQ SCH (09:00)
[2019-01-18] MEDS: Furosemide 40 MG TABLET PO SCH (10:01)
[2019-01-18 11:02] LABS: Platelet Estimate Slight Decrease (Normal)
--- NOTE | 2019-01-18 12:32 | Event Note ---
Date of Encounter: 01/18/19 Time of Encounter: 12:20 PCR - POD#3 s/p right THR robotic 01/15/19 Patient seen at bedside, without complaints. A&O x 3 Afebrile, vital signs stable, BP improved after fluids, blood transfusion and medication changes. on tele. There was an increase in temp (Tmax 100.5) after the transfusion yesterday which has now resolved. Dressings c/d/i except for small area of bleeding noted to posterior end, appears old from POD#1 - No increase compared to yesterday - will continue to monitor - dressings to be changed today. no calf tenderness to palpation, good dorsiflexion of foot, sensation intact distally. Labs reviewed. H/H - 7.8/23.4 asymptomatic - 2 units RBC transfusion 01/17, Dr. Valdez ordered another unit today Kidney function much improved today after the transfusions. Appreciate hospitalists recommendations for management of hypotension and DALIA on CKD. Pain control: adequate Participating in PT. All questions and concerns addressed. Educated on use of incentive spirometer. Encouraged ambulation and proper hydration. Patient educated on post-operative restrictions and post-operative care. Assessment and plan: Continue with postoperative care Discharge plan: ECF when medically cleared possibly tomorrow
[2019-01-18] MEDS ORDERED: 0.9 % Sodium Chloride 250 ML ONE (12:46)
[2019-01-18] MEDS: *HR* Enoxaparin 30 MG/0.3 ML SYRINGE SQ SCH (17:40)
[2019-01-19] MEDS: *HR* Enoxaparin 30 MG/0.3 ML SYRINGE SQ SCH (05:51)
[2019-01-19 07:40] LABS: Hematocrit 25.8 % (37.5-50.1); Hemoglobin 8.6 g/dL (12.9-16.9); Mean Corpuscular HGB Conc 33.3 g/dL (31.6-35.5); Mean Corpuscular Hemoglobin 32.3 pg (28.0-33.3); Platelet Count 131 K/mcL (140-400); Red Blood Count 2.66 M/mcL (4.19-5.50); Red Cell Distribution Width 15.7 % (11.5-14.5); White Blood Count 8.5 K/mcL (4.3-11.1)
[2019-01-19 07:53] LABS: BUN/Creatinine Ratio 24 (6-26); Blood Urea Nitrogen 23 mg/dL (8-23); Calcium 8.2 mg/dL (8.6-10.3); Carbon Dioxide 32 mEq/L (23-29); Chloride 105 mEq/L (98-107); Glucose 147 mg/dL (70-105); Osmolality,Calculated 296 (280-300); Potassium 3.5 mEq/L (3.5-5.1); Sodium 140 mEq/L (136-145); eGFR For African Americans > 60 (> 60); eGFR For Non-African Americans > 60 (> 60)
[2019-01-19] MEDS: Furosemide 40 MG TABLET PO SCH (08:23)
[2019-01-19] MEDS: Multivit/Ca/Min/Fe/FA 1 TAB TABLET PO SCH (08:23)
[2019-01-19] MEDS: Ascorbic Acid 500 MG TABLET PO SCH (08:23)
[2019-01-19] MEDS: OXcarbazepine 150 MG TABLET PO SCH (08:23)
[2019-01-19] MEDS: Niacin (24 HR) 500 MG TAB.ER.24H PO SCH (08:24)
--- NOTE | 2019-01-19 10:59 | Orthopedics Progress Note ---
Date of Encounter: 01/19/19 Time of Encounter: 10:58 - Assessment and Plan (1) Acute blood loss anemia Current Visit: Yes Status: Acute Subjective Interval history: Patient was seen this morning doing well without complaints. Afebrile vital signs stable. Operative extremity: Neurovascularly intact Dressing clean dry and intact Calves nontender Assessment and plan: Continue with postoperative care Hb 8.6 Objective Vital signs: Vital Signs Temp Pulse Resp BP Pulse Ox 01/19/19 07:00 98.1 F 80 17 133/66 94 01/19/19 04:09 98.8 F 71 20 148/85 93 01/18/19 22:48 98.7 F 74 20 136/64 93 01/18/19 19:20 98.4 F 75 20 113/56 93 01/18/19 13:24 98.8 F 67 14 107/54 01/18/19 13:23 98.8 F 67 14 107/54 98 01/18/19 13:09 98.4 F 71 18 119/60 95 Intake and Output 01/18/19 01/19/19 01/19/19 23:59 07:59 15:59 Intake Total 840 / 1840 100 / 340 240 / 340 Balance 840 / 1840 100 / 340 240 / 340 Intake: Oral 490 / 1490 100 / 340 240 / 340 Blood Product 350 / 350 Rbcs Leuko Poor As-3 2nd Unit 350 / 350 [id number] Other: Meal Dinner Breakfast Percent of Meal Consumed 90% 90% # Urine Diapers 2 1 1 Weight 82.9 kg Patient Weight 01/19/19 23:59 Weight 82.9 kg - Labs CBC & BMP: 01/19/19 07:00 01/19/19 07:00 Labs: Abnormal lab results RBC 2.66 M/mcL (4.19-5.50) L 01/19/19 07:00 Hgb 8.6 g/dL (12.9-16.9) L 01/19/19 07:00 Hct 25.8 % (37.5-50.1) L 01/19/19 07:00 MCV 100.5 fL (83.0-100.0) H 01/17/19 06:38 MCHC 31.4 g/dL (31.6-35.5) L 01/16/19 05:18 RDW 15.7 % (11.5-14.5) H 01/19/19 07:00 Plt Count 131 K/mcL (140-400) L 01/19/19 07:00 Lymphocytes # 0.5 K/mcL (0.6-4.6) L 01/16/19 05:18 Platelet Estimate Slight Decrease (Normal) L 01/18/19 08:08 Carbon Dioxide 32 mEq/L (23-29) H 01/19/19 07:00 BUN 28 mg/dL (8-23) H 01/17/19 06:38 Creatinine 1.47 mg/dL (0.70-1.30) H 01/17/19 06:38 Est GFR ( Amer) 55 (> 60) L 01/17/19 06:38 Est GFR (Non-Af Amer) 45 (> 60) L 01/17/19 06:38 Glucose 147 mg/dL (70-105) H 01/19/19 07:00 Calculated Osmolality 301 (280-300) H 01/16/19 05:18 Calcium 8.2 mg/dL (8.6-10.3) L 01/19/19 07:00 Crossmatch See Detail 01/17/19 12:42 - VTE Documentation of Mechanical Device: Venous foot pump, device Consult Discharge Plan - Plan Referrals: Kindra Rudd CNP [Primary Care Provider] -
[2019-01-19 11:51] VITALS: BP 149/67
== END 2019-01-19 15:15 | DRG 470 ==
LOC: SAMDAY 10:40 → 3NENU 16:30
PROVIDERS: ADMIT Orthopaedic Surgery; ATTEND Orthopaedic Surgery

== ENCOUNTER 2019-01-24 15:12 | Inpatient (IN) ==
[2019-01-24] MEDS ORDERED: 0.9 % Sodium Chloride 1,000 ML IVC STA ×2 (16:22→17:55)
[2019-01-24 16:27] LABS: Basophils % 0.2 %; Eosinophils # 0.2 K/mcL (0.0-0.6); Eosinophils % 1.1 %; Hematocrit 23.9 % (37.5-50.1); Hemoglobin 7.6 g/dL (12.9-16.9); Immature Granulocytes % 5.5 % (0-4); Lymphocytes # 1.1 K/mcL (0.6-4.6); Lymphocytes % 7.7 %; Mean Corpuscular HGB Conc 31.8 g/dL (31.6-35.5); Mean Corpuscular Hemoglobin 31.8 pg (28.0-33.3); Mean Platelet Volume 9.6 fL (9.4-12.4); Monocytes # 0.7 K/mcL (0.0-1.3); Neutrophils # 11.2 K/mcL (1.6-8.9); Platelet Count 268 K/mcL (140-400); Red Blood Count 2.39 M/mcL (4.19-5.50); Red Cell Distribution Width 15.1 % (11.5-14.5); Segmented Neutrophils % 80.5 %
[2019-01-24 16:37] LABS: White Blood Count 13.9 K/mcL (4.3-11.1)
[2019-01-24 16:41] LABS: BUN/Creatinine Ratio 35 (6-26); Blood Urea Nitrogen 38 mg/dL (8-23); Carbon Dioxide 29 mEq/L (23-29); Chloride 103 mEq/L (98-107); Glucose 165 mg/dL (70-105); Osmolality,Calculated 299 (280-300); Potassium 3.8 mEq/L (3.5-5.1); Sodium 138 mEq/L (136-145); eGFR For African Americans > 60 (> 60); eGFR For Non-African Americans > 60 (> 60)
[2019-01-24] MEDS ORDERED: cefTRIAXone 1,000 MG in Water for inj. (sterile) 10 ML IVP ONE (17:32)
[2019-01-24] MEDS ORDERED: 0.9 % Sodium Chloride 1,000 ML ONE (17:57)
[2019-01-24] MEDS ORDERED: Piperacillin/Tazobactam 3.375 GM in 0.9 % Sodium Chloride Mini Bag 100 ML IVPB ONE (18:02)
[2019-01-24] MEDS ORDERED: Amiodarone Premix 150 MG/100 ML BAG IVPB ONE (18:25)
[2019-01-24] MEDS ORDERED: Isovue-370 500 ML BOTTLE IVP ONE (18:26)
[2019-01-24] MEDS ORDERED: Morphine Sulfate Immed Rel 15 MG TABLET PO ONE (18:58)
[2019-01-24] MEDS ORDERED: Amiodarone Premix 360 MG/200 ML BAG IVC ONE (19:21)
[2019-01-24] MEDS ORDERED: Amiodarone Premix 360 MG/200 ML BAG IVC SCH (19:30)
[2019-01-24] MEDS ORDERED: Ondansetron ODT 4 MG TAB.RAPDIS SL PRN (20:22)
[2019-01-24] MEDS ORDERED: Naloxone 0.4 MG/ML INJ IVP PRN (20:22)
[2019-01-24] MEDS ORDERED: traMADol 50 MG TABLET PO PRN (20:24)
[2019-01-24 20:38] LABS: Alanine Aminotransferase 202 Units/L (7-52); Albumin 2.8 g/dL (3.5-5.7); Albumin/Globulin Ratio 1.1 (1.1-2.2); Alkaline Phosphatase 173 Units/L (34-104); Aspartate Amino Transferase 240 Units/L (13-39); Bilirubin,Direct 0.3 mg/dL (0.0-0.2); Bilirubin,Indirect 0.7 mg/dL (0.0-1.2); Globulin 2.6 g/dL (2.4-3.5); Magnesium 2.2 mg/dL (1.6-2.6); Total Protein 5.4 g/dL (6.4-8.9)
[2019-01-24] MEDS ORDERED: Aspirin Enteric Coated 325 MG Tablet PO SCH (21:00)
[2019-01-24] MEDS: *HR* Heparin 5,000 UNIT/ML VIAL SQ SCH (21:18)
[2019-01-24] MEDS ORDERED: 0.9 % Sodium Chloride 1,000 ML IVC SCH (23:00)
[2019-01-25] MEDS: OXcarbazepine 150 MG TABLET PO SCH ×3 (00:29→23:11)
[2019-01-25 01:14] LABS: Basophils % 0.2 %; Eosinophils # 0.3 K/mcL (0.0-0.6); Eosinophils % 2.5 %; Hematocrit 20.7 % (37.5-50.1); Hemoglobin 6.7 g/dL (12.9-16.9); Immature Granulocytes % 4.7 % (0-4); Lymphocytes # 1.4 K/mcL (0.6-4.6); Lymphocytes % 12.4 %; Mean Corpuscular HGB Conc 32.4 g/dL (31.6-35.5); Mean Corpuscular Hemoglobin 32.1 pg (28.0-33.3); Mean Platelet Volume 9.4 fL (9.4-12.4); Monocytes # 0.6 K/mcL (0.0-1.3); Monocytes % 5.1 %; Neutrophils # 8.5 K/mcL (1.6-8.9); Platelet Count 242 K/mcL (140-400); Red Blood Count 2.09 M/mcL (4.19-5.50); Red Cell Distribution Width 15.1 % (11.5-14.5); Segmented Neutrophils % 75.1 %; White Blood Count 11.3 K/mcL (4.3-11.1)
[2019-01-25 01:22] LABS: INR 1.1; Prothrombin Time 12.6 Seconds (9.4-12.1)
[2019-01-25 01:24] LABS: Activated Partial Thrombo Time 26.9 Seconds (26.0-36.0)
[2019-01-25 01:33] LABS: BUN/Creatinine Ratio 33 (6-26); Blood Urea Nitrogen 33 mg/dL (8-23); Calcium 7.3 mg/dL (8.6-10.3); Carbon Dioxide 25 mEq/L (23-29); Chloride 106 mEq/L (98-107); Glucose 134 mg/dL (70-105); Osmolality,Calculated 293 (280-300); Potassium 3.6 mEq/L (3.5-5.1); Sodium 137 mEq/L (136-145); eGFR For African Americans > 60 (> 60); eGFR For Non-African Americans > 60 (> 60)
[2019-01-25] MEDS ORDERED: 0.9 % Sodium Chloride 250 ML ONE (02:35)
[2019-01-25 03:58] LABS: Thyroid Stimulating Hormone 2.439 mcIU/mL (0.340-5.600)
[2019-01-25] MEDS: Cefepime HCl 2,000 MG in 0.9 % Sodium Chloride Mini Bag 100 ML IVPB SCH ×2 (04:00→17:50)
[2019-01-25] MEDS: *HR* Heparin 5,000 UNIT/ML VIAL SQ SCH ×3 (06:02→23:12)
[2019-01-25] MEDS: Pantoprazole 40 MG VIAL IVP SCH ×2 (06:02→17:50)
[2019-01-25 06:34] LABS: Hepatitis B Surface Antigen Nonreactive (Nonreactive)
[2019-01-25 07:02] LABS: Hepatitis C Virus Antibody Nonreactive (Nonreactive)
[2019-01-25 07:03] LABS: Hepatitis B Core IgM Nonreactive (Nonreactive)
[2019-01-25 07:04] LABS: Hepatitis A Antibody IgM Nonreactive (Nonreactive)
[2019-01-25] MEDS: Niacin (24 HR) 500 MG TAB.ER.24H PO SCH (07:53)
[2019-01-25 08:34] LABS: Hematocrit 24.9 % (37.5-50.1); Hemoglobin 8.1 g/dL (12.9-16.9)
[2019-01-25] MEDS ORDERED: Furosemide 40 MG TABLET PO SCH (09:00)
[2019-01-25 09:25] LABS: Alanine Aminotransferase 210 Units/L (7-52); Albumin 2.4 g/dL (3.5-5.7); Alkaline Phosphatase 240 Units/L (34-104); Aspartate Amino Transferase 289 Units/L (13-39); Bilirubin,Direct 0.7 mg/dL (0.0-0.2); Bilirubin,Indirect 0.6 mg/dL (0.0-1.2); Bilirubin,Total 1.3 mg/dL (0.3-1.0); Globulin 2.4 g/dL (2.4-3.5); Total Protein 4.8 g/dL (6.4-8.9)
[2019-01-25] MEDS: Furosemide 40 MG/4 ML VIAL IVP SCH (18:04)
[2019-01-25 20:39] LABS: Hematocrit 25.3 % (37.5-50.1); Hemoglobin 8.3 g/dL (12.9-16.9); Mean Corpuscular HGB Conc 32.8 g/dL (31.6-35.5); Mean Corpuscular Hemoglobin 31.1 pg (28.0-33.3); Mean Corpuscular Volume 94.8 fL (83.0-100.0); Mean Platelet Volume 9.5 fL (9.4-12.4); Nucleated Red Blood Cells 0.2 /100 WBC (0); Platelet Count 304 K/mcL (140-400); Red Blood Count 2.67 M/mcL (4.19-5.50); Red Cell Distribution Width 16.4 % (11.5-14.5); White Blood Count 12.6 K/mcL (4.3-11.1)
[2019-01-25 20:54] LABS: BUN/Creatinine Ratio 28 (6-26); Blood Urea Nitrogen 28 mg/dL (8-23); Calcium 7.6 mg/dL (8.6-10.3); Carbon Dioxide 27 mEq/L (23-29); Chloride 107 mEq/L (98-107); Glucose 122 mg/dL (70-105); Osmolality,Calculated 297 (280-300); Potassium 3.6 mEq/L (3.5-5.1); Sodium 140 mEq/L (136-145); eGFR For African Americans > 60 (> 60); eGFR For Non-African Americans > 60 (> 60)
[2019-01-25 20:55] LABS: Albumin 2.6 g/dL (3.5-5.7); Bilirubin,Direct 0.3 mg/dL (0.0-0.2); Bilirubin,Indirect 0.7 mg/dL (0.0-1.2); Globulin 2.5 g/dL (2.4-3.5); Magnesium 2.1 mg/dL (1.6-2.6); Total Protein 5.1 g/dL (6.4-8.9)
[2019-01-25 21:10] LABS: Monocytes # 0.3 K/mcL (0.0-1.3); Neutrophils # 11.3 K/mcL (1.6-8.9)
[2019-01-25 21:11] LABS: Anisocytosis 1+ (Not Present)
[2019-01-25 21:12] LABS: Hypochromasia Present (Not Present)
[2019-01-25 21:13] LABS: Platelet Estimate Normal (Normal); Reactive Lymphocytes Present (Not Present)
[2019-01-26 01:28] LABS: Hematocrit 24.7 % (37.5-50.1); Mean Corpuscular HGB Conc 32.4 g/dL (31.6-35.5); Mean Corpuscular Hemoglobin 30.9 pg (28.0-33.3); Mean Corpuscular Volume 95.4 fL (83.0-100.0); Mean Platelet Volume 9.5 fL (9.4-12.4); Platelet Count 289 K/mcL (140-400); Red Blood Count 2.59 M/mcL (4.19-5.50); Red Cell Distribution Width 16.5 % (11.5-14.5); White Blood Count 11.5 K/mcL (4.3-11.1)
[2019-01-26 01:37] LABS: BUN/Creatinine Ratio 27 (6-26); Blood Urea Nitrogen 26 mg/dL (8-23); Calcium 7.5 mg/dL (8.6-10.3); Carbon Dioxide 25 mEq/L (23-29); Chloride 108 mEq/L (98-107); Glucose 113 mg/dL (70-105); Osmolality,Calculated 298 (280-300); Potassium 3.4 mEq/L (3.5-5.1); Sodium 141 mEq/L (136-145); eGFR For African Americans > 60 (> 60); eGFR For Non-African Americans > 60 (> 60)
[2019-01-26 01:46] LABS: Acinetobacter baumannii by PCR Not Detected (Not Detect); Candida albicans by PCR Not Detected (Not Detect); Candida glabrata by PCR Not Detected (Not Detect); Candida krusei by PCR Not Detected (Not Detect); Candida parapsilosis by PCR Not Detected (Not Detect); Candida tropicalis by PCR Not Detected (Not Detect); Enterobacter cloacae Cmplx PCR Not Detected (Not Detect); Enterobacteriaceae by PCR Not Detected (Not Detect); Enterococcus by PCR Not Detected (Not Detect); Escherichia coli by PCR Not Detected (Not Detect); Klebsiella oxytoca by PCR Not Detected (Not Detect); Klebsiella pneumoniae by PCR Not Detected (Not Detect); Proteus by PCR Not Detected (Not Detect); Pseudomonas aeruginosa by PCR Not Detected (Not Detect); Serratia marcescens by PCR Not Detected (Not Detect); Staphylococcus aureus by PCR Not Detected (Not Detect); Staphylococcus by PCR Not Detected (Not Detect); Streptococcus agalactiae(B)PCR Not Detected (Not Detect); Streptococcus by PCR Not Detected (Not Detect); Streptococcus pneumoniae PCR Not Detected (Not Detect); Streptococcus pyogenes (A) PCR Not Detected (Not Detect); blaKPC Carbapenem-Resist Gene Not Detected (Not Detect); mecA Methicillin-Resist Gene Not Detected (Not Detect); vanA/B Vancomycin-Resist Genes Not Detected (Not Detect)
[2019-01-26] MEDS: Cefepime HCl 2,000 MG in 0.9 % Sodium Chloride Mini Bag 100 ML IVPB SCH ×2 (02:50→16:13)
[2019-01-26] MEDS: *HR* Heparin 5,000 UNIT/ML VIAL SQ SCH (06:43)
[2019-01-26] MEDS: Pantoprazole 40 MG VIAL IVP SCH ×3 (06:43→18:59)
[2019-01-26] MEDS: OXcarbazepine 150 MG TABLET PO SCH ×2 (07:53→20:40)
[2019-01-26] MEDS: Niacin (24 HR) 500 MG TAB.ER.24H PO SCH (07:53)
[2019-01-26] MEDS: Metoprolol XL (24 HR) Succ 25 MG TAB.ER.24H PO SCH (07:53)
[2019-01-26] MEDS: Furosemide 40 MG/4 ML VIAL IVP SCH (07:53)
[2019-01-26 11:55] LABS: Bilirubin,Urine Negative (Negative); Blood,Urine Large (Negative); Clarity,Urine Clear (Clear); Color,Urine Yellow (Yellow); Glucose,Urine (UA) Normal (Normal); Ketones,Urine Negative (Negative); Leukocyte Esterase,Urine Negative (Negative); Nitrite,Urine Negative (Negative); Protein,Urine Negative (Neg-Trace); Specific Gravity,Urine 1.015 (1.010-1.025); Urobilinogen,Urine Normal (Normal)
[2019-01-26 12:14] LABS: Bacteria,Urine Few per hpf (None-Few); Squamous Epithelial Cell,Urine Few per lpf (None-Few); WBC,Urine 0-3 per hpf (0-3)
[2019-01-27] MEDS: Cefepime HCl 2,000 MG in 0.9 % Sodium Chloride Mini Bag 100 ML IVPB SCH ×2 (02:33→14:26)
[2019-01-27] MEDS: OXcarbazepine 150 MG TABLET PO SCH ×2 (05:10→23:51)
[2019-01-27] MEDS: Pantoprazole 40 MG VIAL IVP SCH ×2 (05:10→18:20)
[2019-01-27] MEDS ORDERED: Haloperidol Lactate 5 MG/ML VIAL IVP ONE (05:23)
[2019-01-27] MEDS ORDERED: *HR* Promethazine 25 MG/ML VIAL IVP ONE (05:23)
[2019-01-27 09:14] LABS: Basophils # 0.1 K/mcL (0.0-0.2); Basophils % 0.5 %; Eosinophils # 0.3 K/mcL (0.0-0.6); Eosinophils % 1.7 %; Hematocrit 25.7 % (37.5-50.1); Hemoglobin 8.3 g/dL (12.9-16.9); Immature Granulocytes % 4.7 % (0-4); Lymphocytes # 1.2 K/mcL (0.6-4.6); Lymphocytes % 7.7 %; Mean Corpuscular HGB Conc 32.3 g/dL (31.6-35.5); Mean Corpuscular Volume 95.9 fL (83.0-100.0); Mean Platelet Volume 9.2 fL (9.4-12.4); Monocytes # 0.9 K/mcL (0.0-1.3); Monocytes % 5.7 %; Neutrophils # 11.9 K/mcL (1.6-8.9); Platelet Count 371 K/mcL (140-400); Red Blood Count 2.68 M/mcL (4.19-5.50); Red Cell Distribution Width 15.9 % (11.5-14.5); Segmented Neutrophils % 79.7 %
[2019-01-27 09:34] LABS: BUN/Creatinine Ratio 26 (6-26); Blood Urea Nitrogen 25 mg/dL (8-23); Calcium 7.7 mg/dL (8.6-10.3); Carbon Dioxide 28 mEq/L (23-29); Chloride 107 mEq/L (98-107); Glucose 130 mg/dL (70-105); Osmolality,Calculated 290 (280-300); Potassium 3.5 mEq/L (3.5-5.1); Sodium 137 mEq/L (136-145); eGFR For African Americans > 60 (> 60); eGFR For Non-African Americans > 60 (> 60)
[2019-01-27 10:32] LABS: Alanine Aminotransferase 147 Units/L (7-52); Albumin 2.4 g/dL (3.5-5.7); Alkaline Phosphatase 182 Units/L (34-104); Aspartate Amino Transferase 130 Units/L (13-39); Bilirubin,Direct 0.3 mg/dL (0.0-0.2); Bilirubin,Indirect 0.6 mg/dL (0.0-1.2); Bilirubin,Total 0.9 mg/dL (0.3-1.0); Globulin 2.3 g/dL (2.4-3.5); Total Protein 4.7 g/dL (6.4-8.9)
[2019-01-27] MEDS: Niacin (24 HR) 500 MG TAB.ER.24H PO SCH (10:44)
[2019-01-27] MEDS: Metoprolol XL (24 HR) Succ 25 MG TAB.ER.24H PO SCH (10:44)
[2019-01-27] MEDS ORDERED: Furosemide 20 MG/2 ML VIAL IVP ONE (13:07)
[2019-01-28 02:57] LABS: Eosinophils # 0.3 K/mcL (0.0-0.6); Hemoglobin 8.5 g/dL (12.9-16.9); Mean Corpuscular HGB Conc 31.5 g/dL (31.6-35.5); Mean Corpuscular Hemoglobin 30.8 pg (28.0-33.3); Mean Corpuscular Volume 97.8 fL (83.0-100.0); Mean Platelet Volume 9.4 fL (9.4-12.4); Platelet Count 402 K/mcL (140-400); Red Blood Count 2.76 M/mcL (4.19-5.50); Red Cell Distribution Width 15.8 % (11.5-14.5); White Blood Count 13.7 K/mcL (4.3-11.1)
[2019-01-28 03:04] LABS: INR 1.2; Prothrombin Time 13.5 Seconds (9.4-12.1)
[2019-01-28 03:15] LABS: Alanine Aminotransferase 150 Units/L (7-52); Albumin 2.3 g/dL (3.5-5.7); Alkaline Phosphatase 151 Units/L (34-104); Aspartate Amino Transferase 140 Units/L (13-39); BUN/Creatinine Ratio 29 (6-26); Bilirubin,Total 0.9 mg/dL (0.3-1.0); Blood Urea Nitrogen 26 mg/dL (8-23); Calcium 7.8 mg/dL (8.6-10.3); Carbon Dioxide 27 mEq/L (23-29); Chloride 106 mEq/L (98-107); Globulin 2.4 g/dL (2.4-3.5); Glucose 129 mg/dL (70-105); Magnesium 2.1 mg/dL (1.6-2.6); Osmolality,Calculated 292 (280-300); Potassium 3.5 mEq/L (3.5-5.1); Sodium 138 mEq/L (136-145); Total Protein 4.7 g/dL (6.4-8.9); eGFR For African Americans > 60 (> 60); eGFR For Non-African Americans > 60 (> 60)
[2019-01-28 03:21] LABS: Lymphocytes # 2.7 K/mcL (0.6-4.6); Monocytes # 0.8 K/mcL (0.0-1.3)
[2019-01-28] MEDS: Cefepime HCl 2,000 MG in 0.9 % Sodium Chloride Mini Bag 100 ML IVPB SCH ×2 (04:25→15:28)
[2019-01-28] MEDS: Pantoprazole 40 MG VIAL IVP SCH ×2 (05:56→19:40)
[2019-01-28] MEDS: OXcarbazepine 150 MG TABLET PO SCH ×2 (07:17→21:14)
[2019-01-28] MEDS ORDERED: Furosemide 40 MG/4 ML VIAL IVP ONE (08:05)
[2019-01-28] MEDS: Acetaminophen 325 MG TABLET PO PRN ×2 (09:43→21:14)
[2019-01-28] MEDS: Metoprolol XL (24 HR) Succ 25 MG TAB.ER.24H PO SCH (09:44)
[2019-01-28] MEDS: Niacin (24 HR) 500 MG TAB.ER.24H PO SCH (09:44)
[2019-01-28] MEDS: traMADol 50 MG TABLET PO PRN (15:25)
[2019-01-28] MEDS ORDERED: Vancomycin 500 MG in 0.9 % Sodium Chloride Mini Bag 100 ML IVPB SCH (23:15)
[2019-01-28] MEDS ORDERED: Vancomycin 500 MG in 0.9 % Sodium Chloride Mini Bag 100 ML IVPB ONE (23:15)
[2019-01-29] MEDS: Cefepime HCl 2,000 MG in 0.9 % Sodium Chloride Mini Bag 100 ML IVPB SCH ×2 (04:17→15:46)
[2019-01-29] MEDS: Pantoprazole 40 MG VIAL IVP SCH ×2 (05:58→18:26)
[2019-01-29] MEDS: OXcarbazepine 150 MG TABLET PO SCH ×2 (05:58→18:26)
[2019-01-29 07:03] LABS: Eosinophils # 0.3 K/mcL (0.0-0.6); Hematocrit 26.4 % (37.5-50.1); Hemoglobin 8.5 g/dL (12.9-16.9); Mean Corpuscular HGB Conc 32.2 g/dL (31.6-35.5); Mean Corpuscular Hemoglobin 30.9 pg (28.0-33.3); Mean Platelet Volume 9.1 fL (9.4-12.4); Platelet Count 430 K/mcL (140-400); Red Blood Count 2.75 M/mcL (4.19-5.50); Red Cell Distribution Width 15.5 % (11.5-14.5); White Blood Count 12.4 K/mcL (4.3-11.1)
[2019-01-29 07:21] LABS: BUN/Creatinine Ratio 26 (6-26); Blood Urea Nitrogen 26 mg/dL (8-23); Calcium 8.1 mg/dL (8.6-10.3); Carbon Dioxide 27 mEq/L (23-29); Chloride 107 mEq/L (98-107); Glucose 139 mg/dL (70-105); Osmolality,Calculated 289 (280-300); Potassium 3.6 mEq/L (3.5-5.1); Sodium 136 mEq/L (136-145); eGFR For African Americans > 60 (> 60); eGFR For Non-African Americans > 60 (> 60)
[2019-01-29] MEDS ORDERED: Furosemide 20 MG TABLET PO SCH (09:00)
[2019-01-29 09:06] LABS: Lymphocytes # 1.9 K/mcL (0.6-4.6); Monocytes # 0.5 K/mcL (0.0-1.3); Neutrophils # 9.7 K/mcL (1.6-8.9)
[2019-01-29 09:07] LABS: Platelet Estimate Normal (Normal)
[2019-01-29] MEDS: Niacin (24 HR) 500 MG TAB.ER.24H PO SCH (09:12)
[2019-01-29] MEDS: Metoprolol XL (24 HR) Succ 25 MG TAB.ER.24H PO SCH (09:12)
[2019-01-30] MEDS: Cefepime HCl 2,000 MG in 0.9 % Sodium Chloride Mini Bag 100 ML IVPB SCH ×2 (02:14→16:13)
[2019-01-30 05:09] LABS: Basophils % 0.3 %; Eosinophils # 0.3 K/mcL (0.0-0.6); Eosinophils % 2.7 %; Hematocrit 26.3 % (37.5-50.1); Hemoglobin 8.4 g/dL (12.9-16.9); Immature Granulocytes % 4.7 % (0-4); Lymphocytes # 1.5 K/mcL (0.6-4.6); Lymphocytes % 14.2 %; Mean Corpuscular HGB Conc 31.9 g/dL (31.6-35.5); Mean Corpuscular Hemoglobin 31.1 pg (28.0-33.3); Mean Corpuscular Volume 97.4 fL (83.0-100.0); Mean Platelet Volume 9.2 fL (9.4-12.4); Monocytes # 0.8 K/mcL (0.0-1.3); Neutrophils # 7.6 K/mcL (1.6-8.9); Platelet Count 414 K/mcL (140-400); Red Cell Distribution Width 15.1 % (11.5-14.5); Segmented Neutrophils % 71.1 %; White Blood Count 10.7 K/mcL (4.3-11.1)
[2019-01-30] MEDS: Pantoprazole 40 MG VIAL IVP SCH (05:10)
[2019-01-30 05:27] LABS: BUN/Creatinine Ratio 29 (6-26); Blood Urea Nitrogen 26 mg/dL (8-23); Carbon Dioxide 24 mEq/L (23-29); Chloride 106 mEq/L (98-107); Glucose 116 mg/dL (70-105); Osmolality,Calculated 290 (280-300); Potassium 3.7 mEq/L (3.5-5.1); Sodium 137 mEq/L (136-145); eGFR For African Americans > 60 (> 60); eGFR For Non-African Americans > 60 (> 60)
[2019-01-30] MEDS: Furosemide 20 MG TABLET PO SCH (09:36)
[2019-01-30] MEDS: Niacin (24 HR) 500 MG TAB.ER.24H PO SCH (09:36)
[2019-01-30] MEDS: OXcarbazepine 150 MG TABLET PO SCH ×2 (09:36→21:00)
[2019-01-30] MEDS: Metoprolol XL (24 HR) Succ 25 MG TAB.ER.24H PO SCH (09:37)
[2019-01-30] MEDS: traMADol 50 MG TABLET PO PRN ×2 (12:51→20:59)
[2019-01-31] MEDS: Cefepime HCl 2,000 MG in 0.9 % Sodium Chloride Mini Bag 100 ML IVPB SCH ×2 (01:56→14:37)
[2019-01-31] MEDS: Niacin (24 HR) 500 MG TAB.ER.24H PO SCH (08:13)
[2019-01-31] MEDS: Metoprolol XL (24 HR) Succ 25 MG TAB.ER.24H PO SCH (08:13)
[2019-01-31] MEDS: OXcarbazepine 150 MG TABLET PO SCH (08:13)
[2019-01-31] MEDS: Furosemide 20 MG TABLET PO SCH (08:13)
[2019-01-31 09:24] LABS: Basophils # 0.1 K/mcL (0.0-0.2); Basophils % 0.7 %; Eosinophils # 0.4 K/mcL (0.0-0.6); Eosinophils % 3.7 %; Hematocrit 29.5 % (37.5-50.1); Hemoglobin 9.2 g/dL (12.9-16.9); Immature Granulocytes % 4.1 % (0-4); Lymphocytes # 1.3 K/mcL (0.6-4.6); Lymphocytes % 12.8 %; Mean Corpuscular HGB Conc 31.2 g/dL (31.6-35.5); Mean Corpuscular Hemoglobin 30.2 pg (28.0-33.3); Mean Corpuscular Volume 96.7 fL (83.0-100.0); Monocytes # 0.7 K/mcL (0.0-1.3); Monocytes % 6.8 %; Neutrophils # 7.3 K/mcL (1.6-8.9); Platelet Count 454 K/mcL (140-400); Red Blood Count 3.05 M/mcL (4.19-5.50); Red Cell Distribution Width 15.4 % (11.5-14.5); Segmented Neutrophils % 71.9 %; White Blood Count 10.2 K/mcL (4.3-11.1)
[2019-01-31 16:18] VITALS: BP 135/73
[2019-01-31] MEDS ORDERED: Aminoglycoside Consult 1 EACH MC ONE (18:37)
== END 2019-01-31 18:38 | DRG 862 ==
LOC: 3BNU 15:12 → EMEROOARM 15:12 → 2NNU 19:52 → SUATTDRO 20:08 → 2NNU 20:30 → 3NENU 01-26 15:40
PROVIDERS: ADMIT Pharmacist; ATTEND Internal Medicine
PROC: IRDRAIN (2019-01-26 12:00)

== ENCOUNTER 2019-02-15 18:31 | Inpatient (IN) ==
[2019-02-15 19:55] LABS: Hematocrit 31.1 % (37.5-50.1); Hemoglobin 10.1 g/dL (12.9-16.9); Mean Corpuscular HGB Conc 32.5 g/dL (31.6-35.5); Mean Corpuscular Hemoglobin 31.5 pg (28.0-33.3); Mean Corpuscular Volume 96.9 fL (83.0-100.0); Mean Platelet Volume 9.5 fL (9.4-12.4); Platelet Count 193 K/mcL (140-400); Red Blood Count 3.21 M/mcL (4.19-5.50); Red Cell Distribution Width 16.1 % (11.5-14.5); White Blood Count 10.8 K/mcL (4.3-11.1)
[2019-02-15 20:16] LABS: BUN/Creatinine Ratio 20 (6-26); Blood Urea Nitrogen 20 mg/dL (8-23); Calcium 8.3 mg/dL (8.6-10.3); Carbon Dioxide 32 mEq/L (23-29); Chloride 101 mEq/L (98-107); Glucose 122 mg/dL (70-105); Osmolality,Calculated 284 (280-300); Potassium 3.8 mEq/L (3.5-5.1); Sodium 135 mEq/L (136-145); Troponin I 0.03 ng/mL (< 0.04); eGFR For African Americans > 60 (> 60); eGFR For Non-African Americans > 60 (> 60)
[2019-02-15] MEDS ORDERED: Naloxone 0.4 MG/ML INJ IVP PRN (21:58)
[2019-02-15 22:43] LABS: Bilirubin,Urine Negative (Negative); Blood,Urine Negative (Negative); Clarity,Urine Clear (Clear); Color,Urine Yellow (Yellow); Glucose,Urine (UA) Normal (Normal); Ketones,Urine Negative (Negative); Leukocyte Esterase,Urine Negative (Negative); Nitrite,Urine Negative (Negative); Protein,Urine Negative (Neg-Trace); Specific Gravity,Urine 1.021 (1.010-1.025); Urobilinogen,Urine Normal (Normal)
[2019-02-16] MEDS: Nystatin POWDER 30 GM BOTTLE TP SCH ×2 (01:28→20:35)
[2019-02-16 04:23] LABS: Hematocrit 28.3 % (37.5-50.1); Hemoglobin 8.9 g/dL (12.9-16.9); Mean Corpuscular HGB Conc 31.4 g/dL (31.6-35.5); Mean Corpuscular Hemoglobin 30.8 pg (28.0-33.3); Mean Corpuscular Volume 97.9 fL (83.0-100.0); Mean Platelet Volume 9.1 fL (9.4-12.4); Platelet Count 163 K/mcL (140-400); Red Blood Count 2.89 M/mcL (4.19-5.50); Red Cell Distribution Width 16.1 % (11.5-14.5); White Blood Count 8.5 K/mcL (4.3-11.1)
[2019-02-16 04:31] LABS: INR 1.3; Prothrombin Time 15.3 Seconds (9.4-12.1)
[2019-02-16 04:42] LABS: BUN/Creatinine Ratio 18 (6-26); Blood Urea Nitrogen 17 mg/dL (8-23); Carbon Dioxide 30 mEq/L (23-29); Chloride 102 mEq/L (98-107); Glucose 111 mg/dL (70-105); Osmolality,Calculated 290 (280-300); Potassium 3.7 mEq/L (3.5-5.1); Sodium 139 mEq/L (136-145); eGFR For African Americans > 60 (> 60); eGFR For Non-African Americans > 60 (> 60)
[2019-02-16] MEDS ORDERED: Piperacillin/Tazobactam 3.375 GM in 0.9 % Sodium Chloride Mini Bag 100 ML IVPB SCH ×2 (09:06→16:00)
[2019-02-16] MEDS ORDERED: Acetaminophen IV 1,000 MG/100 ML INFUS..BTL ONE (12:51)
[2019-02-16] MEDS ORDERED: Famotidine 20 MG/2 ML VIAL ONE (12:51)
[2019-02-16] MEDS ORDERED: *HR* HYDROcodone/Acet 5/325 mg TABLET PO PRN (12:56)
[2019-02-16] MEDS ORDERED: Ethanol\\Acetic Acid\\Na Ace\\Ben 1,000 ML IRRIG.SOLN IR ONE (13:02)
[2019-02-16] MEDS ORDERED: *HR* FentaNYL (PF) 100 MCG/2 ML VIAL ONE (13:16)
[2019-02-16] MEDS ORDERED: *HR* Propofol 200 MG/20 ML VIAL IVP ONE (13:16)
[2019-02-16] MEDS ORDERED: Lidocaine HCL 4 ML Topical Solution (Laryng-O-Jet Kit Sterile Pak) TP ONE (13:18)
[2019-02-16] MEDS ORDERED: *HR* Succinylcholine 200 MG/10 ML VIAL IVP ONE (13:18)
[2019-02-16] MEDS ORDERED: Lidocaine -MPF 2% 2 ML VIAL ONE (13:18)
[2019-02-16] MEDS ORDERED: Ondansetron 4 MG/2 ML VIAL ONE (13:51)
[2019-02-16] MEDS ORDERED: EPHEDrine 50 MG/ML VIAL ONE (13:54)
[2019-02-16] MEDS ORDERED: Ondansetron 4 MG/2 ML VIAL IVP ONE (14:36)
[2019-02-16] MEDS ORDERED: Morphine Sulfate 2 MG/ML SYRINGE IVP PRN (14:36)
[2019-02-16] MEDS ORDERED: Sennosides 8.6 MG TABLET PO PRN (15:19)
[2019-02-16] MEDS ORDERED: HYDROcodone BIT/Homatropine 5 MG TABLET PO PRN (15:19)
[2019-02-16] MEDS ORDERED: MOM Conc 10 ML UD.LIQ PO PRN (15:19)
[2019-02-16] MEDS ORDERED: *HR* Promethazine 25 MG/ML VIAL IVP PRN (15:19)
[2019-02-16] MEDS ORDERED: Temazepam 15 MG CAPSULE PO PRN (15:19)
[2019-02-16] MEDS ORDERED: Ondansetron 4 MG/2 ML VIAL IVP PRN (15:19)
[2019-02-16] MEDS ORDERED: traMADol 50 MG TABLET PO PRN (15:19)
[2019-02-16] MEDS ORDERED: Naloxone 0.4 MG/ML INJ IVP PRN (15:19)
[2019-02-16] MEDS: Ascorbic Acid 500 MG TABLET PO SCH (17:31)
[2019-02-16 20:25] LABS: Hematocrit 31.4 % (37.5-50.1); Hemoglobin 9.9 g/dL (12.9-16.9)
[2019-02-16] MEDS: Ringers Solution, Lactated 1,000 ML IVC SCH (20:33)
[2019-02-16] MEDS: OXcarbazepine 150 MG TABLET PO SCH (20:34)
[2019-02-16] MEDS ORDERED: *HR* Heparin 5,000 UNIT/ML VIAL SQ SCH (21:00)
[2019-02-16] MEDS ORDERED: OXcarbazepine 150 MG TABLET PO SCH (21:00)
[2019-02-17] MEDS: Nystatin POWDER 30 GM BOTTLE TP SCH ×3 (00:37→21:32)
[2019-02-17] MEDS: Piperacillin/Tazobactam 3.375 GM in 0.9 % Sodium Chloride Mini Bag 100 ML IVPB SCH ×4 (01:00→23:12)
[2019-02-17] MEDS: Ringers Solution, Lactated 1,000 ML IVC SCH (04:28)
[2019-02-17 05:22] LABS: Basophils % 0.1 %; Eosinophils # 0.1 K/mcL (0.0-0.6); Eosinophils % 1.1 %; Hematocrit 27.7 % (37.5-50.1); Hemoglobin 8.7 g/dL (12.9-16.9); Lymphocytes % 10.3 %; Mean Corpuscular HGB Conc 31.4 g/dL (31.6-35.5); Mean Corpuscular Hemoglobin 31.2 pg (28.0-33.3); Mean Corpuscular Volume 99.3 fL (83.0-100.0); Mean Platelet Volume 9.4 fL (9.4-12.4); Monocytes # 0.7 K/mcL (0.0-1.3); Monocytes % 6.9 %; Neutrophils # 8.1 K/mcL (1.6-8.9); Platelet Count 181 K/mcL (140-400); Red Blood Count 2.79 M/mcL (4.19-5.50); Segmented Neutrophils % 80.6 %; White Blood Count 10.1 K/mcL (4.3-11.1)
[2019-02-17 05:42] LABS: BUN/Creatinine Ratio 17 (6-26); Blood Urea Nitrogen 15 mg/dL (8-23); Calcium 7.9 mg/dL (8.6-10.3); Carbon Dioxide 29 mEq/L (23-29); Chloride 102 mEq/L (98-107); Glucose 151 mg/dL (70-105); Osmolality,Calculated 288 (280-300); Potassium 3.8 mEq/L (3.5-5.1); Sodium 137 mEq/L (136-145); eGFR For African Americans > 60 (> 60); eGFR For Non-African Americans > 60 (> 60)
[2019-02-17] MEDS: Ascorbic Acid 500 MG TABLET PO SCH ×2 (08:46→16:10)
[2019-02-17] MEDS: Furosemide 40 MG TABLET PO SCH (08:46)
[2019-02-17] MEDS: Aspirin Enteric Coated 81 MG Tablet PO SCH (08:46)
[2019-02-17] MEDS: OXcarbazepine 150 MG TABLET PO SCH ×2 (08:46→21:31)
[2019-02-17] MEDS: Multivit/Ca/Min/Fe/FA 1 TAB TABLET PO SCH (08:46)
[2019-02-17] MEDS ORDERED: Furosemide 40 MG TABLET PO SCH (09:00)
[2019-02-17] MEDS ORDERED: Aspirin Enteric Coated 81 MG Tablet PO SCH (09:00)
[2019-02-18 07:17] LABS: Basophils % 0.3 %; Eosinophils # 0.4 K/mcL (0.0-0.6); Eosinophils % 3.9 %; Hemoglobin 9.3 g/dL (12.9-16.9); Immature Granulocytes % 1.7 % (0-4); Lymphocytes # 1.6 K/mcL (0.6-4.6); Lymphocytes % 15.2 %; Mean Corpuscular HGB Conc 32.1 g/dL (31.6-35.5); Mean Corpuscular Volume 96.7 fL (83.0-100.0); Mean Platelet Volume 9.2 fL (9.4-12.4); Monocytes # 0.6 K/mcL (0.0-1.3); Neutrophils # 7.5 K/mcL (1.6-8.9); Platelet Count 213 K/mcL (140-400); Red Cell Distribution Width 16.2 % (11.5-14.5); Segmented Neutrophils % 72.9 %; White Blood Count 10.3 K/mcL (4.3-11.1)
[2019-02-18 07:36] LABS: BUN/Creatinine Ratio 14 (6-26); Blood Urea Nitrogen 13 mg/dL (8-23); Calcium 7.9 mg/dL (8.6-10.3); Carbon Dioxide 31 mEq/L (23-29); Chloride 103 mEq/L (98-107); Glucose 107 mg/dL (70-105); Osmolality,Calculated 289 (280-300); Potassium 3.5 mEq/L (3.5-5.1); Sodium 139 mEq/L (136-145); eGFR For African Americans > 60 (> 60); eGFR For Non-African Americans > 60 (> 60)
[2019-02-18] MEDS: Multivit/Ca/Min/Fe/FA 1 TAB TABLET PO SCH (09:57)
[2019-02-18] MEDS: OXcarbazepine 150 MG TABLET PO SCH ×2 (09:57→20:58)
[2019-02-18] MEDS: Piperacillin/Tazobactam 3.375 GM in 0.9 % Sodium Chloride Mini Bag 100 ML IVPB SCH ×2 (09:57→16:40)
[2019-02-18] MEDS: Furosemide 40 MG TABLET PO SCH (09:58)
[2019-02-18] MEDS: Ascorbic Acid 500 MG TABLET PO SCH ×2 (09:58→16:42)
[2019-02-18] MEDS: Aspirin Enteric Coated 81 MG Tablet PO SCH (09:58)
[2019-02-18] MEDS: Nystatin POWDER 30 GM BOTTLE TP SCH ×2 (09:58→20:59)
[2019-02-18] MEDS ORDERED: Lactulose Oral Soln 20 GM/30 ML UDC PO ONE (10:08)
[2019-02-18] MEDS: *HR* Heparin 5,000 UNIT/ML VIAL SQ SCH (16:43)
[2019-02-19] MEDS: Piperacillin/Tazobactam 3.375 GM in 0.9 % Sodium Chloride Mini Bag 100 ML IVPB SCH (01:01)
[2019-02-19] MEDS: *HR* Heparin 5,000 UNIT/ML VIAL SQ SCH ×2 (05:10→16:28)
[2019-02-19 05:18] LABS: Basophils % 0.2 %; Eosinophils # 0.4 K/mcL (0.0-0.6); Eosinophils % 3.4 %; Hematocrit 31.2 % (37.5-50.1); Hemoglobin 9.7 g/dL (12.9-16.9); Immature Granulocytes % 1.6 % (0-4); Lymphocytes # 1.9 K/mcL (0.6-4.6); Lymphocytes % 15.4 %; Mean Corpuscular HGB Conc 31.1 g/dL (31.6-35.5); Mean Corpuscular Hemoglobin 31.1 pg (28.0-33.3); Mean Platelet Volume 9.1 fL (9.4-12.4); Monocytes # 0.7 K/mcL (0.0-1.3); Monocytes % 5.6 %; Platelet Count 219 K/mcL (140-400); Red Blood Count 3.12 M/mcL (4.19-5.50); Red Cell Distribution Width 16.5 % (11.5-14.5); Segmented Neutrophils % 73.8 %; White Blood Count 12.1 K/mcL (4.3-11.1)
[2019-02-19 05:36] LABS: BUN/Creatinine Ratio 13 (6-26); Blood Urea Nitrogen 12 mg/dL (8-23); Calcium 8.1 mg/dL (8.6-10.3); Carbon Dioxide 29 mEq/L (23-29); Chloride 105 mEq/L (98-107); Glucose 118 mg/dL (70-105); Magnesium 2.1 mg/dL (1.6-2.6); Osmolality,Calculated 291 (280-300); Phosphorous 3.4 mg/dL (2.7-4.5); Potassium 3.6 mEq/L (3.5-5.1); Sodium 140 mEq/L (136-145); eGFR For African Americans > 60 (> 60); eGFR For Non-African Americans > 60 (> 60)
[2019-02-19] MEDS: Ascorbic Acid 500 MG TABLET PO SCH ×2 (09:46→16:27)
[2019-02-19] MEDS: OXcarbazepine 150 MG TABLET PO SCH ×2 (09:47→20:08)
[2019-02-19] MEDS: Aspirin Enteric Coated 81 MG Tablet PO SCH (09:47)
[2019-02-19] MEDS: Furosemide 40 MG TABLET PO SCH (09:48)
[2019-02-19] MEDS: Multivit/Ca/Min/Fe/FA 1 TAB TABLET PO SCH (09:48)
[2019-02-19] MEDS: Nystatin POWDER 30 GM BOTTLE TP SCH ×2 (09:51→20:08)
[2019-02-19 11:37] LABS: C-Reactive Protein 139 mg/L (Less than 10)
[2019-02-19] MEDS: Ertapenem 1,000 MG in 0.9 % Sodium Chloride Mini Bag 100 ML IVPB SCH (12:06)
[2019-02-19] MEDS ORDERED: Aminoglycoside Consult 1 EACH MC ONE (12:15)
[2019-02-19] MEDS: *HR* OxyCODONE Immed Rel 5 MG TABLET PO PRN (12:31)
[2019-02-19] MEDS: Lactobacillus 1 EACH CAP.SPRINK PO SCH (20:08)
[2019-02-20 04:17] LABS: Basophils % 0.4 %; Eosinophils # 0.5 K/mcL (0.0-0.6); Eosinophils % 5.2 %; Hematocrit 29.2 % (37.5-50.1); Hemoglobin 9.5 g/dL (12.9-16.9); Immature Granulocytes % 1.8 % (0-4); Lymphocytes # 1.5 K/mcL (0.6-4.6); Lymphocytes % 16.3 %; Mean Corpuscular HGB Conc 32.5 g/dL (31.6-35.5); Mean Corpuscular Hemoglobin 30.8 pg (28.0-33.3); Mean Corpuscular Volume 94.8 fL (83.0-100.0); Mean Platelet Volume 9.1 fL (9.4-12.4); Monocytes # 0.4 K/mcL (0.0-1.3); Monocytes % 4.8 %; Neutrophils # 6.5 K/mcL (1.6-8.9); Platelet Count 246 K/mcL (140-400); Red Blood Count 3.08 M/mcL (4.19-5.50); Red Cell Distribution Width 16.4 % (11.5-14.5); Segmented Neutrophils % 71.5 %; White Blood Count 9.1 K/mcL (4.3-11.1)
[2019-02-20 04:37] LABS: BUN/Creatinine Ratio 15 (6-26); Blood Urea Nitrogen 13 mg/dL (8-23); Carbon Dioxide 29 mEq/L (23-29); Chloride 105 mEq/L (98-107); Glucose 97 mg/dL (70-105); Osmolality,Calculated 286 (280-300); Potassium 3.4 mEq/L (3.5-5.1); Sodium 138 mEq/L (136-145); eGFR For African Americans > 60 (> 60); eGFR For Non-African Americans > 60 (> 60)
[2019-02-20] MEDS: *HR* Heparin 5,000 UNIT/ML VIAL SQ SCH ×2 (05:08→17:31)
[2019-02-20] MEDS: OXcarbazepine 150 MG TABLET PO SCH ×2 (08:25→19:27)
[2019-02-20] MEDS: Aspirin Enteric Coated 81 MG Tablet PO SCH (08:25)
[2019-02-20] MEDS: Multivit/Ca/Min/Fe/FA 1 TAB TABLET PO SCH (08:25)
[2019-02-20] MEDS: Ascorbic Acid 500 MG TABLET PO SCH ×2 (08:25→17:31)
[2019-02-20] MEDS: Furosemide 40 MG TABLET PO SCH (08:25)
[2019-02-20] MEDS: Lactobacillus 1 EACH CAP.SPRINK PO SCH ×2 (08:25→19:28)
[2019-02-20] MEDS: Ertapenem 1,000 MG in 0.9 % Sodium Chloride Mini Bag 100 ML IVPB SCH (08:26)
[2019-02-20] MEDS: Nystatin POWDER 30 GM BOTTLE TP SCH ×2 (08:28→19:28)
[2019-02-20] MEDS: Pantoprazole 40 MG VIAL IVP SCH (17:32)
[2019-02-21 03:52] LABS: Hematocrit 28.1 % (37.5-50.1); Mean Corpuscular Hemoglobin 30.7 pg (28.0-33.3); Mean Corpuscular Volume 95.9 fL (83.0-100.0); Platelet Count 246 K/mcL (140-400); Red Blood Count 2.93 M/mcL (4.19-5.50); Red Cell Distribution Width 16.3 % (11.5-14.5)
[2019-02-21 04:12] LABS: BUN/Creatinine Ratio 17 (6-26); Blood Urea Nitrogen 14 mg/dL (8-23); Calcium 7.9 mg/dL (8.6-10.3); Carbon Dioxide 29 mEq/L (23-29); Chloride 102 mEq/L (98-107); Glucose 102 mg/dL (70-105); Magnesium 2.1 mg/dL (1.6-2.6); Osmolality,Calculated 287 (280-300); Phosphorous 2.8 mg/dL (2.7-4.5); Potassium 3.8 mEq/L (3.5-5.1); Sodium 138 mEq/L (136-145); eGFR For African Americans > 60 (> 60); eGFR For Non-African Americans > 60 (> 60)
[2019-02-21] MEDS: *HR* Heparin 5,000 UNIT/ML VIAL SQ SCH ×2 (05:02→17:51)
[2019-02-21] MEDS: Multivit/Ca/Min/Fe/FA 1 TAB TABLET PO SCH (08:06)
[2019-02-21] MEDS: OXcarbazepine 150 MG TABLET PO SCH ×2 (08:06→21:42)
[2019-02-21] MEDS: Lactobacillus 1 EACH CAP.SPRINK PO SCH ×2 (08:06→21:41)
[2019-02-21] MEDS: Furosemide 40 MG TABLET PO SCH (08:06)
[2019-02-21] MEDS: Aspirin Enteric Coated 81 MG Tablet PO SCH (08:06)
[2019-02-21] MEDS: Ascorbic Acid 500 MG TABLET PO SCH ×2 (08:06→17:51)
[2019-02-21] MEDS: Pantoprazole 40 MG VIAL IVP SCH (08:07)
[2019-02-21] MEDS: Ertapenem 1,000 MG in 0.9 % Sodium Chloride Mini Bag 100 ML IVPB SCH (08:07)
[2019-02-21] MEDS: Nystatin POWDER 30 GM BOTTLE TP SCH ×2 (08:08→21:42)
[2019-02-21] MEDS: Piperacillin/Tazobactam 3.375 GM in 0.9 % Sodium Chloride Mini Bag 100 ML IVPB SCH (19:33)
[2019-02-22 04:19] LABS: Hemoglobin 8.9 g/dL (12.9-16.9); Mean Corpuscular Hemoglobin 31.1 pg (28.0-33.3); Mean Corpuscular Volume 94.4 fL (83.0-100.0); Mean Platelet Volume 8.8 fL (9.4-12.4); Platelet Count 243 K/mcL (140-400); Red Blood Count 2.86 M/mcL (4.19-5.50); Red Cell Distribution Width 16.2 % (11.5-14.5); White Blood Count 6.6 K/mcL (4.3-11.1)
[2019-02-22 04:36] LABS: BUN/Creatinine Ratio 18 (6-26); Blood Urea Nitrogen 13 mg/dL (8-23); Calcium 7.7 mg/dL (8.6-10.3); Carbon Dioxide 27 mEq/L (23-29); Chloride 105 mEq/L (98-107); Glucose 89 mg/dL (70-105); Osmolality,Calculated 282 (280-300); Potassium 3.7 mEq/L (3.5-5.1); Sodium 136 mEq/L (136-145); eGFR For African Americans > 60 (> 60); eGFR For Non-African Americans > 60 (> 60)
[2019-02-22] MEDS: *HR* Heparin 5,000 UNIT/ML VIAL SQ SCH ×2 (06:14→16:42)
[2019-02-22] MEDS: Furosemide 40 MG TABLET PO SCH (09:34)
[2019-02-22] MEDS: Lactobacillus 1 EACH CAP.SPRINK PO SCH ×2 (09:34→23:47)
[2019-02-22] MEDS: Aspirin Enteric Coated 81 MG Tablet PO SCH (09:34)
[2019-02-22] MEDS: *HR* OxyCODONE Immed Rel 5 MG TABLET PO PRN (09:35)
[2019-02-22] MEDS: Multivit/Ca/Min/Fe/FA 1 TAB TABLET PO SCH (09:36)
[2019-02-22] MEDS: Ascorbic Acid 500 MG TABLET PO SCH ×2 (09:36→16:42)
[2019-02-22] MEDS: OXcarbazepine 150 MG TABLET PO SCH ×2 (09:36→23:47)
[2019-02-22] MEDS: Pantoprazole 40 MG VIAL IVP SCH (09:37)
[2019-02-22] MEDS: Ertapenem 1,000 MG in 0.9 % Sodium Chloride Mini Bag 100 ML IVPB SCH (09:37)
[2019-02-22] MEDS: Nystatin POWDER 30 GM BOTTLE TP SCH ×2 (10:00→23:48)
[2019-02-23 04:59] LABS: Hematocrit 29.9 % (37.5-50.1); Hemoglobin 9.4 g/dL (12.9-16.9); Mean Corpuscular HGB Conc 31.4 g/dL (31.6-35.5); Mean Corpuscular Hemoglobin 30.7 pg (28.0-33.3); Mean Corpuscular Volume 97.7 fL (83.0-100.0); Mean Platelet Volume 8.9 fL (9.4-12.4); Platelet Count 271 K/mcL (140-400); Red Blood Count 3.06 M/mcL (4.19-5.50); Red Cell Distribution Width 16.4 % (11.5-14.5); White Blood Count 8.8 K/mcL (4.3-11.1)
[2019-02-23 05:17] LABS: BUN/Creatinine Ratio 14 (6-26); Blood Urea Nitrogen 12 mg/dL (8-23); Carbon Dioxide 29 mEq/L (23-29); Chloride 101 mEq/L (98-107); Glucose 103 mg/dL (70-105); Osmolality,Calculated 284 (280-300); Potassium 3.5 mEq/L (3.5-5.1); Sodium 137 mEq/L (136-145); eGFR For African Americans > 60 (> 60); eGFR For Non-African Americans > 60 (> 60)
[2019-02-23] MEDS: *HR* Heparin 5,000 UNIT/ML VIAL SQ SCH (06:25)
[2019-02-23] MEDS: Ascorbic Acid 500 MG TABLET PO SCH ×2 (06:26→16:25)
[2019-02-23] MEDS: Lactobacillus 1 EACH CAP.SPRINK PO SCH ×2 (08:41→19:55)
[2019-02-23] MEDS: Aspirin Enteric Coated 81 MG Tablet PO SCH (08:41)
[2019-02-23] MEDS: Nystatin POWDER 30 GM BOTTLE TP SCH ×2 (08:41→19:55)
[2019-02-23] MEDS: Ertapenem 1,000 MG in 0.9 % Sodium Chloride Mini Bag 100 ML IVPB SCH (08:41)
[2019-02-23] MEDS: Furosemide 40 MG TABLET PO SCH (08:41)
[2019-02-23] MEDS: Multivit/Ca/Min/Fe/FA 1 TAB TABLET PO SCH (08:41)
[2019-02-23] MEDS: OXcarbazepine 150 MG TABLET PO SCH ×2 (08:41→19:55)
[2019-02-24 06:02] LABS: Hematocrit 29.5 % (37.5-50.1); Hemoglobin 9.3 g/dL (12.9-16.9); Mean Corpuscular HGB Conc 31.5 g/dL (31.6-35.5); Mean Corpuscular Hemoglobin 30.7 pg (28.0-33.3); Mean Corpuscular Volume 97.4 fL (83.0-100.0); Mean Platelet Volume 8.9 fL (9.4-12.4); Platelet Count 294 K/mcL (140-400); Red Blood Count 3.03 M/mcL (4.19-5.50); Red Cell Distribution Width 16.5 % (11.5-14.5); White Blood Count 7.7 K/mcL (4.3-11.1)
[2019-02-24 06:17] LABS: BUN/Creatinine Ratio 16 (6-26); Blood Urea Nitrogen 15 mg/dL (8-23); Calcium 7.9 mg/dL (8.6-10.3); Carbon Dioxide 29 mEq/L (23-29); Chloride 103 mEq/L (98-107); Glucose 107 mg/dL (70-105); Osmolality,Calculated 287 (280-300); Potassium 3.5 mEq/L (3.5-5.1); Sodium 138 mEq/L (136-145); eGFR For African Americans > 60 (> 60); eGFR For Non-African Americans > 60 (> 60)
[2019-02-24] MEDS: Ascorbic Acid 500 MG TABLET PO SCH ×2 (19:37→19:47)
[2019-02-24] MEDS: Aspirin Enteric Coated 81 MG Tablet PO SCH (19:47)
[2019-02-24] MEDS: Furosemide 40 MG TABLET PO SCH (19:48)
[2019-02-24] MEDS: Ertapenem 1,000 MG in 0.9 % Sodium Chloride Mini Bag 100 ML IVPB SCH (19:48)
[2019-02-24] MEDS: Lactobacillus 1 EACH CAP.SPRINK PO SCH ×2 (19:48→20:20)
[2019-02-24] MEDS: Nystatin POWDER 30 GM BOTTLE TP SCH ×2 (19:55→20:20)
[2019-02-24] MEDS: Multivit/Ca/Min/Fe/FA 1 TAB TABLET PO SCH (19:56)
[2019-02-24] MEDS: OXcarbazepine 150 MG TABLET PO SCH ×2 (19:56→20:20)
[2019-02-25 04:28] LABS: Hematocrit 29.9 % (37.5-50.1); Hemoglobin 9.3 g/dL (12.9-16.9); Mean Corpuscular HGB Conc 31.1 g/dL (31.6-35.5); Mean Corpuscular Volume 99.7 fL (83.0-100.0); Platelet Count 312 K/mcL (140-400); Red Cell Distribution Width 16.7 % (11.5-14.5); White Blood Count 8.7 K/mcL (4.3-11.1)
[2019-02-25 04:46] LABS: BUN/Creatinine Ratio 16 (6-26); Blood Urea Nitrogen 17 mg/dL (8-23); Calcium 7.9 mg/dL (8.6-10.3); Carbon Dioxide 30 mEq/L (23-29); Chloride 103 mEq/L (98-107); Glucose 117 mg/dL (70-105); Osmolality,Calculated 291 (280-300); Potassium 3.6 mEq/L (3.5-5.1); Sodium 139 mEq/L (136-145); eGFR For African Americans > 60 (> 60); eGFR For Non-African Americans > 60 (> 60)
[2019-02-25] MEDS: OXcarbazepine 150 MG TABLET PO SCH ×2 (09:35→21:40)
[2019-02-25] MEDS: Ertapenem 1,000 MG in 0.9 % Sodium Chloride Mini Bag 100 ML IVPB SCH (09:35)
[2019-02-25] MEDS: Furosemide 40 MG TABLET PO SCH (09:35)
[2019-02-25] MEDS: Lactobacillus 1 EACH CAP.SPRINK PO SCH ×2 (09:35→21:38)
[2019-02-25] MEDS: Multivit/Ca/Min/Fe/FA 1 TAB TABLET PO SCH (09:35)
[2019-02-25] MEDS: Aspirin Enteric Coated 81 MG Tablet PO SCH (09:36)
[2019-02-25] MEDS: Ascorbic Acid 500 MG TABLET PO SCH ×2 (09:36→17:05)
[2019-02-25] MEDS: Nystatin POWDER 30 GM BOTTLE TP SCH ×2 (13:20→23:33)
[2019-02-25] MEDS ORDERED: *HR* Heparin 5,000 UNIT/ML VIAL SQ SCH (18:00)
[2019-02-26] MEDS: *HR* OxyCODONE Immed Rel 5 MG TABLET PO PRN (00:39)
[2019-02-26] MEDS: Aspirin Enteric Coated 81 MG Tablet PO SCH (10:01)
[2019-02-26] MEDS: Lactobacillus 1 EACH CAP.SPRINK PO SCH ×2 (10:01→19:25)
[2019-02-26] MEDS: Ascorbic Acid 500 MG TABLET PO SCH ×2 (10:01→16:47)
[2019-02-26] MEDS: Multivit/Ca/Min/Fe/FA 1 TAB TABLET PO SCH (10:01)
[2019-02-26] MEDS: OXcarbazepine 150 MG TABLET PO SCH ×2 (10:01→19:25)
[2019-02-26] MEDS: Furosemide 40 MG TABLET PO SCH (10:01)
[2019-02-26] MEDS: Ertapenem 1,000 MG in 0.9 % Sodium Chloride Mini Bag 100 ML IVPB SCH (10:02)
[2019-02-26] MEDS: Nystatin POWDER 30 GM BOTTLE TP SCH ×2 (11:46→19:26)
[2019-02-27] MEDS: OXcarbazepine 150 MG TABLET PO SCH ×2 (08:50→20:46)
[2019-02-27] MEDS: Ertapenem 1,000 MG in 0.9 % Sodium Chloride Mini Bag 100 ML IVPB SCH (08:51)
[2019-02-27] MEDS: Furosemide 40 MG TABLET PO SCH (08:51)
[2019-02-27] MEDS: Multivit/Ca/Min/Fe/FA 1 TAB TABLET PO SCH (08:51)
[2019-02-27] MEDS: Lactobacillus 1 EACH CAP.SPRINK PO SCH ×2 (08:51→20:47)
[2019-02-27] MEDS: Aspirin Enteric Coated 81 MG Tablet PO SCH (08:51)
[2019-02-27] MEDS: Ascorbic Acid 500 MG TABLET PO SCH ×2 (08:51→17:53)
[2019-02-27] MEDS: Nystatin POWDER 30 GM BOTTLE TP SCH ×2 (08:52→20:47)
[2019-02-27 12:01] LABS: Basophils % 0.3 %; Eosinophils # 0.3 K/mcL (0.0-0.6); Eosinophils % 3.8 %; Hematocrit 30.2 % (37.5-50.1); Hemoglobin 9.6 g/dL (12.9-16.9); Immature Granulocytes % 1.6 % (0-4); Lymphocytes # 2.1 K/mcL (0.6-4.6); Lymphocytes % 28.1 %; Mean Corpuscular HGB Conc 31.8 g/dL (31.6-35.5); Mean Corpuscular Hemoglobin 31.5 pg (28.0-33.3); Mean Platelet Volume 8.9 fL (9.4-12.4); Monocytes # 0.5 K/mcL (0.0-1.3); Monocytes % 6.4 %; Neutrophils # 4.5 K/mcL (1.6-8.9); Platelet Count 337 K/mcL (140-400); Red Blood Count 3.05 M/mcL (4.19-5.50); Segmented Neutrophils % 59.8 %; White Blood Count 7.6 K/mcL (4.3-11.1)
[2019-02-27 12:12] LABS: BUN/Creatinine Ratio 16 (6-26); Blood Urea Nitrogen 15 mg/dL (8-23); Carbon Dioxide 29 mEq/L (23-29); Chloride 106 mEq/L (98-107); Glucose 108 mg/dL (70-105); Osmolality,Calculated 291 (280-300); Potassium 3.7 mEq/L (3.5-5.1); Sodium 140 mEq/L (136-145); eGFR For African Americans > 60 (> 60); eGFR For Non-African Americans > 60 (> 60)
[2019-02-28] MEDS: Aspirin Enteric Coated 81 MG Tablet PO SCH (08:52)
[2019-02-28] MEDS: Ascorbic Acid 500 MG TABLET PO SCH ×2 (08:52→16:35)
[2019-02-28] MEDS: Furosemide 40 MG TABLET PO SCH (08:52)
[2019-02-28] MEDS: Lactobacillus 1 EACH CAP.SPRINK PO SCH (08:52)
[2019-02-28] MEDS: OXcarbazepine 150 MG TABLET PO SCH (08:52)
[2019-02-28] MEDS: Multivit/Ca/Min/Fe/FA 1 TAB TABLET PO SCH (08:52)
[2019-02-28] MEDS: Ertapenem 1,000 MG in 0.9 % Sodium Chloride Mini Bag 100 ML IVPB SCH (08:53)
[2019-02-28] MEDS: Nystatin POWDER 30 GM BOTTLE TP SCH (09:05)
[2019-02-28 11:16] VITALS: BP 172/73
[2019-02-28] MEDS ORDERED: Aminoglycoside Consult 1 EACH MC ONE (17:09)
== END 2019-02-28 17:10 | DRG 500 ==
LOC: EMEROOARM 18:31 → 3NENU 18:31 → SUATTDRO 21:58
PROVIDERS: ADMIT Family Medicine; ATTEND Internal Medicine